=== PATIENT | female | born 1980 | race Caucasian/White ===

== ENCOUNTER 2019-01-22 03:15 | Inpatient (IN) | payer MEDICAID ==
[2019-01-22] MEDS ORDERED: MORPHINE SULFATE 10 MG/ML INJ IV ONE ×2 (03:30→06:56)
[2019-01-22] MEDS ORDERED: ONDANSETRON HCL INJ/PF 4 MG/2 ML SDV IV ONE ×2 (03:31→06:56)
--- NOTE | 2019-01-22 03:34 | ER Document Report ---
ED General <BEAU FREEMANIAN - Last Filed: 01/22/19 08:38> - General TRAVEL OUTSIDE OF THE [place] IN LAST 30 DAYS: No <NICK SOLORIO - Last Filed: 01/22/19 09:08> - General Chief Complaint: Back Injury Stated Complaint: FALL Time Seen by Provider: 01/22/19 03:25 Notes: Patient is a 38-year-old female that comes to the emergency department for chief complaint of injury to the right ribs towards the back. She comes by EMS was given 100 mcg of fentanyl. She states that she slipped on a flip-flop on the floor and hit her back on a corner of a cabinet. She states that she dropped to the floor and she has sharp pain in the ribs where she hit it. She denies hitting her head. She states she had 7 beers throughout the day. She denies chest pain, abdominal pain, difficulty breathing, vomiting, focal numbness or weakness, incontinence. She denies any daily medications, denies . Significant other at bedside. (NICK SOLORIO) - Related Data Allergies/Adverse Reactions: No Known Allergies Allergy (Unverified 11/16/11 08:03) Past Medical History - General Information source: Patient - Social History Smoking Status: Current Every Day Smoker Frequency of alcohol use: Social Drug Abuse: None Lives with: Spouse/Significant other Family History: Reviewed & Not Pertinent Past Surgical History: Reports: Hx Section - x 1 - Immunizations Immunizations up to date: Yes Hx Diphtheria, Pertussis, Tetanus Vaccination: Yes <NICK SOLORIO - Last Filed: 01/22/19 09:08> Review of Systems - Review of Systems Constitutional: No symptoms reported EENT: No symptoms reported Cardiovascular: No symptoms reported Respiratory: See HPI Gastrointestinal: No symptoms reported Genitourinary: No symptoms reported Female Genitourinary: No symptoms reported Musculoskeletal: See HPI Skin: No symptoms reported Hematologic/Lymphatic: No symptoms reported Neurological/Psychological: No symptoms reported <NICK SOLORIO - Last Filed: 01/22/19 09:08> Physical Exam <NICK SOLORIO - Last Filed: 01/22/19 09:08> - Vital signs Vitals: Temp Pulse Resp BP 97.6 F 102 H 24 H 106/59 L 01/22/19 03:23 01/22/19 03:23 01/22/19 03:23 01/22/19 03:23 - Notes Notes: GENERAL: awake, uncomfortable, irritable, but alert and cooperative; smells of alcohol HEAD: Normocephalic, atraumatic. EYES: Pupils equal, round, and reactive to light. Extraocular movements intact. ENT: Oral mucosa moist, tongue midline. Oropharynx unremarkable. Airway patent. Nares patent, no nasal septal hematoma, TM's intact. NECK: Full range of motion. Supple. Trachea midline. LUNGS: Clear to auscultation bilaterally, no wheezes, rales, or rhonchi. No respiratory distress. Very tender with a bruise over the right posterior ribs. No crepitus. HEART: Regular rate and rhythm. No murmur ABDOMEN: Soft, non-tender. Non-distended. Bowel sounds present in all 4 quadrants. GENITOURINARY: Deferred EXTREMITIES: Moves all 4 extremities spontaneously. No edema, normal radial and dorsalis pedis pulses bilaterally. No cyanosis. BACK: no cervical, thoracic, lumbar midline tenderness. No saddle anesthesia, normal distal neurovascular exam. Moves all extremities in full range of motion. NEUROLOGICAL: Alert and oriented x3. Normal speech. Cranial nerves II through XII grossly intact. SKIN: Warm, dry, normal turgor. No rashes or lesions noted. (NICK SOLORIO) Course - Laboratory Result Diagrams: 01/22/19 05:30 01/22/19 05:30 <KISHAN FREEMAN - Last Filed: 01/22/19 08:38> - Laboratory Result Diagrams: 01/22/19 05:30 01/22/19 05:30 <NICK SOLORIO - Last Filed: 01/22/19 09:08> - Re-evaluation Re-evalutation: 01/22/19 08:39 Patient was initially seen by Nick Solorio, physician congressional assistant. He has been come see the patient because she has a traumatic pneumothorax with rib fractures. I did review the x-rays and evaluate the patient. I talked her about the risks and benefits of both procedural sedation and chest tube placement. She agreed to go forward with the. Chest tube was placed patient tolerated both sedation and chest tube placement well. She was sedated with ketamine. CT scans did not show any further concerning injuries except for possible effusion. Patient will be admitted to surgical service for management of rib fractures with pneumothorax. Dictation of this chart was performed using voice recognition software; therefore, there may be some unintended grammatical errors. (KISHAN FREEMAN) Patient does have a bruise on her back and a lot of tenderness over the poste rior ribs on the right side. No other bruising or trauma noted. No head trauma reported or noted. Patient seems mildly intoxicated but she is conversational, oriented, otherwise alert. She is not hypoxic, she is borderline tachycardic. Sending for initial x-ray. X-ray showing moderate sized right-sided pneumothorax, multiple right-sided lower rib fractures. Patient still not hypoxic. I discussed this with patient, she verbally consents for chest tube placement emergently. Patient was im mediately moved to trauma 2 bay, I discussed with Dr. Freeman, he came and placed a right-sided chest tube. CAT scan showing coronary contusion but no other acute traumatic abnormality. Discussed with patient. I did discuss with Dr. Whittington, general surgeon, he will admit patient to his service. Patient does state agreement with this plan. (NICK SOLORIO) - Vital Signs Vital signs: Temp Pulse Resp BP Pulse Ox 97.6 F 102 H 20 111/70 97 01/22/19 03:23 01/22/19 06:45 01/22/19 08:00 01/22/19 08:00 01/22/19 08:00 - Laboratory Laboratory results interpreted by me: 01/22/19 01/22/19 01/22/19 05:30 05:30 07:57 WBC 15.8 H Hgb 8.0 L Hct 26.8 L MCV 64 L MCH 19.1 L MCHC 30.0 L RDW 18.4 H Seg Neuts % (Manual) 96 H Lymphocytes % (Manual) 3 L Monocytes % (Manual) 1 L Abs Neuts (Manual) 15.2 H Creatinine 0.49 L Urine Ketones 25 H Procedures - Chest Tube Right Consent obtained: Yes - verbal Chest tube pre-insertion: Chloraprep applied Size of [place] Tube (cm): 24 Anesthetic type: 1% Lidocaine w/epi mL's of anesthetic: 4 Chest tube post-insertion: Air da silva heard, Sutured, Position confirmed w/ CXR, Water seal, Low intermittent suction Chest tube drainage: none Number of attempts: 1 Complications: No - Conscious Sedation Conscious sedation Consent obtained: Yes - verbal Prior complications: Procedural sedation Normal healthy pt.: P1. - ASA Classification Airway Evaluation: Normal anatomy Mallampati Classification: Class 1 Used during procedure: Suction available, IV access obtained, Pulse ox on pt., manager monitoring on pt. Medications administered: Ketamine Reversal agents: None I personally performed/intraservice time: Sedation, 31-45 min Complications: No <KISHAN FREEMAN - Last Filed: 01/22/19 08:38> - Conscious Sedation Conscious sedation Notes: Patient given a total of 200 mg of ketamine over the course of her entire sedation. She tolerated sedation well without any complications. She is fully awake and alert with full recovery from sedation. (KISHAN FREEMAN) Discharge <KISHAN FREEMAN - Last Filed: 01/22/19 08:38> - Discharge Admitting Provider: Surgicalist Unit Admitted: Surgical Floor <NICK SOLORIO - Last Filed: 01/22/19 09:08> - Discharge Clinical Impression: Ribs, multiple fractures Qualifiers: Encounter type: initial encounter Fracture type: closed Laterality: right Qualified Code(s): S22.41XA - Multiple fractures of ribs, right side, initial encounter for closed fracture Pneumothorax Qualifiers: Pneumothorax type: traumatic Encounter type: initial encounter Qualified Code(s): S27.0XXA - Traumatic pneumothorax, initial encounter Pulmonary contusion Qualifiers: Encounter type: initial encounter Laterality: right Qualified Code(s): S27.321A - Contusion of lung, unilateral, initial encounter Condition: Stable Disposition: ADMITTED INPATIENT
--- NOTE | 2019-01-22 05:07 | RADIOLOGY REPORT (SQ) ---
EXAM DESCRIPTION: XR RIBS UNILATERAL WITH CHEST COMPLETED DATE/TME: 01/22/2019 03:29 CLINICAL HISTORY: 38 years Female, fall, pain to right posterior ribs COMPARISON: None. NUMBER OF VIEWS/TECHNIQUE: 2 FINDINGS: Moderate right pneumothorax with pleural separation of 2.0 cm. Mildly displaced right posterior eighth, ninth, and 10th rib fractures. Soft tissue emphysema of the thoracic wall and neck. Moderate leftward cardiac shift. Pulmonary vascular congestion. IMPRESSION: Moderate right pneumothorax. Right eighth, ninth, and 10th rib fractures.
[2019-01-22] MEDS ORDERED: KETAMINE HCL INJ 500 MG/10 ML VIAL IV ONE ×2 (05:29→07:40)
[2019-01-22] MEDS ORDERED: NORMAL SALINE 1000 ML 1,000 ML IV ONE (05:31)
[2019-01-22 05:52] LABS: HEMATOCRIT 26.8 % (36.0-47.0); MEAN CORPUSCULAR HEMOGLOBIN 19.1 pg (27.0-33.4); PLATELET COUNT 339 10^3/uL (150-450); RED CELL DISTRIBUTION WIDTH 18.4 % (11.5-14.0); WHITE BLOOD COUNT 15.8 10^3/uL (4.0-10.5)
[2019-01-22 05:56] LABS: MEAN CORPUSCULAR VOLUME 64 fl (80-97)
[2019-01-22 06:07] LABS: ALANINE AMINOTRANSFERASE 27 U/L (9-52); ALBUMIN 4.6 g/dL (3.5-5.0); ALCOHOL 50 mg/dL (NONE DETECTED); ALKALINE PHOSPHATASE 61 U/L (38-126); ANION GAP 8 (5-19); ASPARTATE AMINO TRANSFERASE 33 U/L (14-36); BILIRUBIN,DIRECT 0.2 mg/dL (0.0-0.4); BILIRUBIN,TOTAL 0.3 mg/dL (0.2-1.3); BLOOD UREA NITROGEN 10 mg/dL (7-20); CARBON DIOXIDE 24 mmol/L (22-30); CHLORIDE 107 mmol/L (98-107); GLUCOSE 97 mg/dL (75-110); POTASSIUM 4.4 mmol/L (3.6-5.0); TOTAL PROTEIN 7.9 g/dL (6.3-8.2)
[2019-01-22] MEDS ORDERED: LIDOCAINE 1%/EPINEPHRINE INJ 20 ML VIAL INJ ONE (06:08)
[2019-01-22] MEDS ORDERED: LIDOCAINE 1%/EPINEPHRINE INJ 20 ML VIAL ONE (06:09)
[2019-01-22 06:13] LABS: ABSOLUTE LYMPHOCYTES# (MANUAL) 0.5 10^3/uL (0.5-4.7); ABSOLUTE MONOCYTES # (MANUAL) 0.2 10^3/uL (0.1-1.4); BASOPHILS % (MANUAL) 0 % (0-2); EOSINOPHILS % (MANUAL) 0 % (0-6); HYPOCHROMASIA 2+; LYMPHOCYTES % (MANUAL) 3 % (13-45); MONOCYTES % (MANUAL) 1 % (3-13); PLATELET COMMENT ADEQUATE; SEGMENTED NEUTROPHILS % (MAN) 96 % (42-78); TOTAL CELLS COUNTED 100
[2019-01-22 06:14] LABS: ANISOCYTOSIS 2+; OVALOCYTES SLIGHT; POLYCHROMASIA SLIGHT
--- NOTE | 2019-01-22 07:02 | RADIOLOGY REPORT (SQ) ---
EXAM DESCRIPTION: XR CHEST 1 VIEW COMPLETED DATE/TME: 01/22/2019 06:23 CLINICAL HISTORY: 38 years, Female, post chest tube COMPARISON: Rib x-rays done on the same date NUMBER OF VIEWS: One TECHNIQUE: AP view the chest LIMITATIONS: None. FINDINGS: The previous examination, a right-sided chest tube has been placed with resolution of the previously seen pneumothorax. There is no focal consolidation. The heart size is stable. There is subcutaneous emphysema along the supraclavicular regions and bilateral chest, right greater than left. Right-sided rib fractures are again noted. IMPRESSION: Placement of a right-sided chest tube with no definite residual pneumothorax identified. copyright 2010 [employer]- All Rights Reserved
--- NOTE | 2019-01-22 08:06 | RADIOLOGY REPORT (SQ) ---
EXAM DESCRIPTION: CT CHEST WITH IV CONTRAST, CT ABDOMEN PELVIS WITH IV CONTRAST COMPLETED DATE/TME: 01/22/2019 05:19 CLINICAL HISTORY: 38 years, Female, fall, rib fx, pneumo COMPARISON: None. TECHNIQUE: Axial CT images of the chest, abdomen, and pelvis were obtained after the administration of IV contrast. DLP 652 Images stored on PACS. All CT scanners at this facility use dose modulation, iterative reconstruction, and/or weight based dosing when appropriate to reduce radiation dose to as low as reasonably achievable (ALARA). [facility]: Dose Right [facility]: CareDose [facility]: Dose Right [facility]: Teradose 4D [facility]: [employer] LIMITATIONS: None. FINDINGS: --Chest-- Thoracic aorta: Unremarkable. Heart: Unremarkable. Mediastinum: No pathologic sized middle mediastinal lymphadenopathy. Tracheobronchial tree: Unremarkable. Lungs: Lobar consolidation: There are two areas of pulmonary contusion/laceration within the right lower lobe. Pleural effusion: Tiny right hemothorax. Pneumothorax: Tiny residual pneumothorax with a right-sided chest tube in place. Other: Negative. Bones: There are displaced fractures involving the right eighth through 11th ribs. There is extensive subcutaneous emphysema along the chest, back, and neck, right greater than left. --Abdomen-- Solid abdominal viscera: Liver: Unremarkable. Gallbladder: Unremarkable. Pancreas: Unremarkable. Spleen: Unremarkable. Adrenal glands: Unremarkable. Right kidney: No hydronephrosis. Left kidney: No hydronephrosis. Urinary bladder: Vides catheter in place Abdominal aorta: Unremarkable. Peritoneal: Free fluid: None. Free air: None. Other: No pathologic sized lymph nodes in the upper abdomen. Bowel: Stomach: Unremarkable. Small bowel: Unremarkable. Appendix: Not uniquely identified. Colon: Unremarkable. Rectum: Unremarkable. Uterus: Unremarkable. Bones: Unremarkable. IMPRESSION: Displaced right-sided rib fractures with two areas of pulmonary contusion/laceration involving the right lower lobe. Tiny residual pneumothorax with a right-sided chest tube in place. Extensive subcutaneous emphysema along the neck, chest, and back, right greater than left. Tiny right hemothorax. No evidence of acute traumatic injury to the abdomen or pelvis. TECHNICAL DOCUMENTATION: Quality ID # [id number]: Final reports with documentation of one or more dose reduction techniques (e.g., Automated exposure control, adjustment of the mA and/or kV according to patient size, use of iterative reconstruction technique) copyright 2011 [employer]- All Rights Reserved
[2019-01-22 08:17] LABS: APPEARANCE,URINE CLEAR; COLOR,URINE STRAW; GLUCOSE, URINE NEGATIVE (NEGATIVE)
[2019-01-22] MEDS ORDERED: OXYCODONE-ACETAMINOPHEN 5-325 MG TABLET PO PRN (08:17)
[2019-01-22 08:18] LABS: BILIRUBIN,URINE NEGATIVE (NEGATIVE); KETONES,URINE 25 mg/dL (NEGATIVE); LEUKOCYTE ESTERASE,URINE NEGATIVE (NEGATIVE); NITRITE,URINE NEGATIVE (NEGATIVE); PROTEIN,URINE NEGATIVE (NEGATIVE); URINE SPECIFIC GRAVITY 1.039; UROBILINOGEN,URINE NEGATIVE mg/dL (<2.0)
[2019-01-22] MEDS: MORPHINE SULFATE 10 MG/ML INJ IV PRN ×4 (09:01→21:43)
[2019-01-22] MEDS: ONDANSETRON HCL INJ/PF 4 MG/2 ML SDV IV PRN ×4 (09:02→22:56)
[2019-01-22] MEDS: FAMOTIDINE 20 MG TABLET PO SCH ×2 (10:32→21:43)
[2019-01-22] MEDS: ENOXAPARIN SODIUM INJ 40 MG/0.4 ML DISP.SYRIN SUBCUT SCH (10:33)
[2019-01-22] MEDS: DOCUSATE SODIUM 100 MG CAPSULE PO SCH ×2 (10:33→17:08)
[2019-01-22] MEDS: KETOROLAC TROMETHAMINE INJ/PF 30 MG/1 ML SDV IV SCH ×2 (14:14→21:42)
--- NOTE | 2019-01-22 17:32 | PDOC H&P ---
History of Present Illness Admission Date/PCP: 01/22/19 08:15 Patient complains of: Right-sided back and chest pain status post fall. Pulmonary contusion. Multiple rib fractures. Pneumothorax. History of Present Illness: ROMULO LUNA is a 38 year old female who reportedly was intoxicated at home, slipped, and fell into her large wooden table. The corner of the table hit her right inferior lateral back. She reports that she immediately had difficulty breathing and EMS was called. The patient was transported to the emergency department where a pneumothorax was found. The patient had a thoracostomy tube placed in the emergency department on the right side. Currently she reports significant amounts of chest pain, especially with inspiration. Her pain is sharp and stabbing. It is 10 out of 10. It radiates into her right shoulder now around her right anterior chest. Pain medication makes her pain better, movement and deep inspiration make it worse. She denies significant shortness of breath at this time. She denies headache, nausea, vomiting, fevers, chills, malaise, orthostasis, dizziness, melena, hematochezia, abdominal pain, weakness, paresthesias. Past Surgical History Past Surgical History: Reports: Section - x 1 Social History Lives with: Spouse/Significant other Smoking Status: Current Every Day Smoker Cigarettes Packs Per Day: 1 Frequency of Alcohol Use: Occasional Hx Recreational Drug Use: Yes Drugs: Marijuana, Other - Adderall Hx Prescription Drug Abuse: No Family History Family History: Reviewed & Not Pertinent Parental Family History Reviewed: Yes Children Family History Reviewed: Yes Sibling(s) Family History Reviewed.: Yes Medication/Allergy Home Medications: No Home Medications 01/22/19 Allergies/Adverse Reactions: No Known Allergies Allergy (Unverified 11/16/11 08:03) Review of Systems Constitutional: ABSENT: anorexia, chills, fatigue, fever(s), weakness Eyes: ABSENT: visual disturbances Ears: ABSENT: hearing changes Nose, Mouth, and Throat: ABSENT: mouth pain, sore throat Cardiovascular: PRESENT: chest pain, dyspnea on exertion Respiratory: PRESENT: dyspnea Gastrointestinal: ABSENT: abdominal pain, hematemesis, hematochezia, melena, nausea, vomiting Genitourinary: ABSENT: dysuria Musculoskeletal: PRESENT: back pain Integumentary: ABSENT: pruritus, rash Neurological: ABSENT: confusion, convulsions, dizziness, weakness Psychiatric: ABSENT: anxiety, depression Endocrine: ABSENT: cold intolerance, heat intolerance Hematologic/Lymphatic: ABSENT: easy bleeding, easy bruising Physical Exam Vital Signs: Temp Pulse Resp BP Pulse Ox 98 F 67 16 112/60 94 01/22/19 14:32 01/22/19 14:32 01/22/19 14:32 01/22/19 14:32 01/22/19 14:32 Intake & Output 01/21/19 01/22/19 01/23/19 06:59 06:59 06:59 Intake Total 1000 Balance 1000 Weight 59.6 kg General appearance: PRESENT: no acute distress, cooperative Head exam: PRESENT: atraumatic, normocephalic Eye exam: PRESENT: EOMI, PERRLA. ABSENT: scleral icterus Mouth exam: PRESENT: moist, neck supple Teeth exam: ABSENT: poor dentation Neck exam: ABSENT: meningismus, tenderness, thyromegaly, tracheal deviation Respiratory exam: PRESENT: chest wall tenderness, decreased breath sounds - Right side, other - Tube thoracostomy present on the right side Cardiovascular exam: PRESENT: RRR Pulses: PRESENT: normal radial pulses Vascular exam: PRESENT: normal capillary refill GI/Abdominal exam: PRESENT: soft. ABSENT: distended, guarding, rebound, tenderness Rectal exam: PRESENT: deferred Extremities exam: ABSENT: clubbing Musculoskeletal exam: ABSENT: deformity Neurological exam: PRESENT: alert, awake, oriented to person, oriented to place, oriented to time, oriented to situation, CN II-XII grossly intact. ABSENT: motor sensory deficit Psychiatric exam: ABSENT: agitated, anxious, depressed Focused psych exam: ABSENT: delusional Skin exam: ABSENT: cyanosis, erythema, jaundice Results Laboratory Results: 01/22/19 05:30 01/22/19 05:30 01/22/19 01/22/19 01/22/19 05:30 05:30 05:30 WBC 15.8 H RBC 4.20 Hgb 8.0 L Hct 26.8 L MCV 64 L MCH 19.1 L MCHC 30.0 L RDW 18.4 H Plt Count 339 Seg Neutrophils % Not Reportable Lymphocytes % Not Reportable Monocytes % Not Reportable Eosinophils % Not Reportable Basophils % Not Reportable Absolute Neutrophils Not Reportable Absolute Lymphocytes Not Reportable Absolute Monocytes Not Reportable Absolute Eosinophils Not Reportable Absolute Basophils Not Reportable Sodium 139.0 Potassium 4.4 Chloride 107 Carbon Dioxide 24 Anion Gap 8 BUN 10 Creatinine 0.49 L Est GFR ( Amer) > 60 Est GFR (Non-Af Amer) > 60 Glucose 97 Calcium 9.0 Total Bilirubin 0.3 AST 33 ALT 27 Alkaline Phosphatase 61 Total Protein 7.9 Albumin 4.6 Serum HCG, Qual NEGATIVE Urine Color Urine Appearance Urine pH Ur Specific [place] Urine Protein Urine Glucose (UA) Urine Ketones Urine Blood Urine Nitrite Ur Leukocyte Esterase Urine WBC (Auto) Urine RBC (Auto) 01/22/19 07:57 WBC RBC Hgb Hct MCV MCH MCHC RDW Plt Count Seg Neutrophils % Lymphocytes % Monocytes % Eosinophils % Basophils % Absolute Neutrophils Absolute Lymphocytes Absolute Monocytes Absolute Eosinophils Absolute Basophils Sodium Potassium Chloride Carbon Dioxide Anion Gap BUN Creatinine Est GFR ( Amer) Est GFR (Non-Af Amer) Glucose Calcium Total Bilirubin AST ALT Alkaline Phosphatase Total Protein Albumin Serum HCG, Qual Urine Color STRAW Urine Appearance CLEAR Urine pH 6.0 Ur Specific [place] 1.039 Urine Protein NEGATIVE Urine Glucose (UA) NEGATIVE Urine Ketones 25 H Urine Blood NEGATIVE Urine Nitrite NEGATIVE Ur Leukocyte Esterase NEGATIVE Urine WBC (Auto) 1 Urine RBC (Auto) 1 Impressions: Ribs w/Chest X-Ray 01/22/19 03:29 IMPRESSION: Moderate right pneumothorax. Right eighth, ninth, and 10th rib fractures. Abdomen/Pelvis CT 01/22/19 05:19 IMPRESSION: Displaced right-sided rib fractures with two areas of pulmonary contusion/laceration involving the right lower lobe. Tiny residual pneumothorax with a right-sided chest tube in place. Extensive subcutaneous emphysema along the neck, chest, and back, right greater than left. Tiny right hemothorax. No evidence of acute traumatic injury to the abdomen or pelvis. TECHNICAL DOCUMENTATION: Quality ID # 436: Final reports with documentation of one or more dose reduction techniques (e.g., Automated exposure control, adjustment of the mA and/or kV according to patient size, use of iterative reconstruction technique) copyright 2011 [employer]- All Rights Reserved Chest CT 01/22/19 05:19 IMPRESSION: Displaced right-sided rib fractures with two areas of pulmonary contusion/laceration involving the right lower lobe. Tiny residual pneumothorax with a right-sided chest tube in place. Extensive subcutaneous emphysema along the neck, chest, and back, right greater than left. Tiny right hemothorax. No evidence of acute traumatic injury to the abdomen or pelvis. TECHNICAL DOCUMENTATION: Quality ID # 436: Final reports with documentation of one or more dose reduction techniques (e.g., Automated exposure control, adjustment of the mA and/or kV according to patient size, use of iterative reconstruction technique) copyright 2011 [employer]- All Rights Reserved Chest X-Ray 01/22/19 06:23 IMPRESSION: Placement of a right-sided chest tube with no definite residual pneumothorax identified. copyright 2011 [employer]- All Rights Reserved Assessment & Plan - Diagnosis (1) Multiple fractures of ribs, right side, initial encounter for closed fracture Is this a current diagnosis for this admission?: Yes (2) Right pulmonary contusion Qualifiers: Encounter type: initial encounter Qualified Code(s): S27.321A - Contusion of lung, unilateral, initial encounter Is this a current diagnosis for this admission?: Yes (3) Pneumothorax, right Is this a current diagnosis for this admission?: Yes - Plan Summary Plan Summary: This is a patient status post fall. She landed on a large wooden table, with the corner of the table hitting her right lower back. I have personally reviewed her CT scan images and report. She has multiple fractured ribs, pulmonary contusion, and a pneumothorax. She also has a large amount of subcutaneous emphysema on the right. Patient had a chest tube placed in the emergency department. There is no air leak apparent upon my inspection. I will place the patient's chest tubes 20 cm of water suction. I have provided the patient with analgesia in the form of Toradol, morphine, and hydrocodone. I have encouraged her to use her incentive spirometry, as this will prevent pneumonia. I have encouraged her to sit up, and get out of bed to a bedside chair. Repeat chest x-ray tomorrow. Further interventions will be determined by the patient's clinical course.
[2019-01-22] MEDS: HYDROCODONE/ACETAMINOPHEN 10-325 MG TABLET PO PRN ×2 (18:35→22:56)
[2019-01-23] MEDS: MORPHINE SULFATE 10 MG/ML INJ IV PRN ×4 (02:13→16:46)
[2019-01-23] MEDS: HYDROCODONE/ACETAMINOPHEN 10-325 MG TABLET PO PRN ×4 (03:05→23:14)
[2019-01-23] MEDS: ONDANSETRON HCL INJ/PF 4 MG/2 ML SDV IV PRN ×3 (03:07→18:21)
[2019-01-23] MEDS: KETOROLAC TROMETHAMINE INJ/PF 30 MG/1 ML SDV IV SCH ×3 (06:43→21:09)
--- NOTE | 2019-01-23 08:27 | RADIOLOGY REPORT (SQ) ---
EXAM DESCRIPTION: CHEST SINGLE VIEW COMPLETED DATE/TIME: 01/23/2019 8:02 am REASON FOR STUDY: pneumothorax COMPARISON: CT chest 01/22/2019 AP chest 01/22/2019 EXAM PARAMETERS: NUMBER OF VIEWS: One view. TECHNIQUE: Single frontal radiographic view of the chest acquired. RADIATION DOSE: NA LIMITATIONS: None. FINDINGS: LUNGS AND PLEURA: The right chest tube has been pulled back, the side port is lateral to t he right rib margin. This finding was called to Dr. Lopez, 0815 hours 01/23/2019. No right-sided pneumothorax. Stable right lateral chest wall, minimal left lateral chest wall, and bilateral supraclavicular air. Posttraumatic pneumatocele in the right lower lobe is superimposed over the right posterior 9th and 1 0th ribs, stable compared to prior CT. No right pleural effusion. No dense right lung consolidation worrisome for acute pneumonia. Left hemithorax unremarkable. MEDIASTINUM AND HILAR STRUCTURES: No masses. Contour normal. HEART AND VASCULAR STRUCTURES: Heart normal in size. Normal vasculature. BONES: Acute minimally displaced right lateral 8th and 9th rib fractures HARDWARE: Right chest tube has been pulled back, tip is still in the pleural space and side-port is l ateral to the right 7th rib OTHER: No other significant finding. IMPRESSION: Right lateral 8th and 9th rib fractures Stable right lower lung pneumatoceles. Right chest tube has been pulled back, side port is lateral to the rib margin. Stable chest wall air . No pneumothorax. TECHNICAL DOCUMENTATION: JOB ID: [id number] [employer]- All Rights Reserved Reading location - IP/workstation name: [email or web address]
--- NOTE | 2019-01-23 09:41 | PDOC PROGRESS REPORT ---
Subjective Progress Note for:: 01/23/19 Subjective:: Patient have a significant amount of pain. Vides catheter still in. She is tolerating a diet. Has not been out of bed. Reason For Visit: S/P FALL,RIB FX,PULMONARY CONTUSION Physical Exam Vital Signs: Temp Pulse Resp BP Pulse Ox 97.8 F 67 16 100/52 L 94 01/22/19 22:00 01/22/19 22:00 01/22/19 22:00 01/22/19 22:00 01/22/19 22:00 Intake & Output 01/22/19 01/23/19 01/24/19 06:59 06:59 06:59 Intake Total 1240 Output Total 1425 Balance -185 Weight 59.6 kg General appearance: PRESENT: mild distress Respiratory exam: PRESENT: other - Dressing from right chest removed. Chest tube re-advanced 1-2 cm. Chest tube resecured. There is no evidence of air leak. Chest tube chamber shows no evidence of air leak, minimal fluctuation. Some serosanguineous fluid in tube Results Laboratory Results: 01/22/19 05:30 01/22/19 05:30 Impressions: Ribs w/Chest X-Ray 01/22/19 03:29 IMPRESSION: Moderate right pneumothorax. Right eighth, ninth, and 10th rib fractures. Abdomen/Pelvis CT 01/22/19 05:19 IMPRESSION: Displaced right-sided rib fractures with two areas of pulmonary contusion/laceration involving the right lower lobe. Tiny residual pneumothorax with a right-sided chest tube in place. Extensive subcutaneous emphysema along the neck, chest, and back, right greater than left. Tiny right hemothorax. No evidence of acute traumatic injury to the abdomen or pelvis. TECHNICAL DOCUMENTATION: Quality ID # 436: Final reports with documentation of one or more dose reduction techniques (e.g., Automated exposure control, adjustment of the mA and/or kV according to patient size, use of iterative reconstruction technique) copyright 2011 [employer]- All Rights Reserved Chest CT 01/22/19 05:19 IMPRESSION: Displaced right-sided rib fractures with two areas of pulmonary contusion/laceration involving the right lower lobe. Tiny residual pneumothorax with a right-sided chest tube in place. Extensive subcutaneous emphysema along the neck, chest, and back, right greater than left. Tiny right hemothorax. No evidence of acute traumatic injury to the abdomen or pelvis. TECHNICAL DOCUMENTATION: Quality ID # [id number]: Final reports with documentation of one or more dose reduction techniques (e.g., Automated exposure control, adjustment of the mA and/or kV according to patient size, use of iterative reconstruction technique) copyright 2011 [employer]- All Rights Reserved Chest X-Ray 01/23/19 06:00 IMPRESSION: Right lateral 8th and 9th rib fractures Stable right lower lung pneumatoceles. Right chest tube has been pulled back, side port is lateral to the rib margin. Stable chest wall air. No pneumothorax. Assessment & Plan - Diagnosis (1) Multiple fractures of ribs, right side, initial encounter for closed fr acture Is this a current diagnosis for this admission?: Yes Plan: Impression: Hospital day 2 status post fall, blunt right chest trauma, with mult iple rib fractures, pneumothorax, pulmonary contusion status post chest tube placement. Interval chest x-ray this morning shows no evidence of pneumothorax, stable, limited subcutaneous emphysema. Chest tube sentinel hole at chest wall- tube readvanced at bedside Medications: 1. Place chest tube to waterseal-done 2. Discontinue Vides catheter 3. Increased pulmonary toilet 4. Hopefully can remove chest tube tomorrow. Plan discussed with patient.
[2019-01-23] MEDS: DOCUSATE SODIUM 100 MG CAPSULE PO SCH ×2 (10:49→18:22)
[2019-01-23] MEDS: FAMOTIDINE 20 MG TABLET PO SCH ×2 (10:50→21:12)
[2019-01-23] MEDS: ENOXAPARIN SODIUM INJ 40 MG/0.4 ML DISP.SYRIN SUBCUT SCH (10:50)
[2019-01-23 14:38] LABS: PATH REVIEW PATHOLOGIST REVIEWED
[2019-01-24] MEDS: MORPHINE SULFATE 10 MG/ML INJ IV PRN ×4 (01:45→22:45)
[2019-01-24] MEDS: KETOROLAC TROMETHAMINE INJ/PF 30 MG/1 ML SDV IV SCH ×3 (05:43→22:18)
[2019-01-24] MEDS: HYDROCODONE/ACETAMINOPHEN 10-325 MG TABLET PO PRN ×4 (07:04→20:01)
--- NOTE | 2019-01-24 10:36 | PDOC PROGRESS REPORT ---
Subjective Progress Note for:: 01/24/19 Subjective:: Discomfort at chest tube insertion site. Otherwise feels well. No shortness of breath. No neck pain. No abdominal pain. Reason For Visit: S/P FALL,RIB FX,PULMONARY CONTUSION Physical Exam Vital Signs: Temp Pulse Resp BP Pulse Ox 97.6 F 63 16 98/51 L 98 01/24/19 07:26 01/24/19 07:26 01/24/19 07:26 01/24/19 07:26 01/24/19 07:26 Intake & Output 01/23/19 01/24/19 01/25/19 06:59 06:59 06:59 Intake Total 1240 997 Output Total 1425 770 Balance -185 227 Weight 59.6 kg General appearance: PRESENT: no acute distress, cooperative Neck exam: PRESENT: other - Supple with no tenderness. Respiratory exam: PRESENT: clear to auscultation rick, other - Right-sided chest tube in place. Dressings intact. No air leak on the chest tube Pleur-evac. Cardiovascular exam: PRESENT: RRR GI/Abdominal exam: PRESENT: other - Soft, nondistended, nontender to palpation. Extremities exam: PRESENT: other - Full range of motion with no evidence of injury. Neurological exam: PRESENT: alert, awake Psychiatric exam: PRESENT: appropriate affect Results Laboratory Results: 01/22/19 05:30 01/22/19 05:30 Impressions: Ribs w/Chest X-Ray 01/22/19 03:29 IMPRESSION: Moderate right pneumothorax. Right eighth, ninth, and 10th rib fractures. Abdomen/Pelvis CT 01/22/19 05:19 IMPRESSION: Displaced right-sided rib fractures with two areas of pulmonary contusion/laceration involving the right lower lobe. Tiny residual pneumothorax with a right-sided chest tube in place. Extensive subcutaneous emphysema along the neck, chest, and back, right greater than left. Tiny right hemothorax. No evidence of acute traumatic injury to the abdomen or pelvis. TECHNICAL DOCUMENTATION: Quality ID # 436: Final reports with documentation of one or more dose reduction techniques (e.g., Automated exposure control, adjustment of the mA and/or kV according to patient size, use of iterative reconstruction technique) copyright 2011 [employer]- All Rights Reserved Chest CT 01/22/19 05:19 IMPRESSION: Displaced right-sided rib fractures with two areas of pulmonary contusion/laceration involving the right lower lobe. Tiny residual pneumothorax with a right-sided chest tube in place. Extensive subcutaneous emphysema along the neck, chest, and back, right greater than left. Tiny right hemothorax. No evidence of acute traumatic injury to the abdomen or pelvis. TECHNICAL DOCUMENTATION: Quality ID # 436: Final reports with documentation of one or more dose reduction techniques (e.g., Automated exposure control, adjustment of the mA and/or kV according to patient size, use of iterative reconstruction technique) copyright 2011 [employer]- All Rights Reserved Chest X-Ray 01/23/19 06:00 IMPRESSION: Right lateral 8th and 9th rib fractures Stable right lower lung pneumatoceles. Right chest tube has been pulled back, side port is lateral to the rib margin. Stable chest wall air. No pneumothorax. Assessment & Plan - Diagnosis (1) Pneumothorax, right Is this a current diagnosis for this admission?: Yes Plan: Patient looks pretty good. Check chest x-ray. If chest x-ray looks good we will plan to DC her chest tube and possibly discharge her home later today.
[2019-01-24] MEDS: FAMOTIDINE 20 MG TABLET PO SCH ×3 (10:59→22:27)
[2019-01-24] MEDS: ENOXAPARIN SODIUM INJ 40 MG/0.4 ML DISP.SYRIN SUBCUT SCH (10:59)
[2019-01-24] MEDS: DOCUSATE SODIUM 100 MG CAPSULE PO SCH ×2 (10:59→17:22)
--- NOTE | 2019-01-24 12:30 | RADIOLOGY REPORT (SQ) ---
EXAM DESCRIPTION: CHEST SINGLE VIEW COMPLETED DATE/TIME: 01/24/2019 10:53 am REASON FOR STUDY: f/u ptx COMPARISON: AP chest 01/23/2019, 740 hours EXAM PARAMETERS: NUMBER OF VIEWS: One view. TECHNIQUE: Single frontal radiographic view of the chest acquired. RADIATION DOSE: NA LIMITATIONS: None. FINDINGS: LUNGS AND PLEURA: A right-sided chest tube is in place, the tip is in the pleural space an d side-port is lateral to the rib margin. Position is similar compared to chest film 01/23/2019 0740 h ours. Images reviewed with Dr. Hayward. There is trace right apical pneumothorax marked with arrows. Small posttraumatic pneumatoceles with air-fluid levels are present in the right lower lobe adjacent to the right lateral 8th and 9th rib fractures. There is micro atelectasis at the right lung base. Remainder of the lungs are well inflated and grossly clear. No pleural effusions. No left pneumothorax. MEDIASTINUM AND HILAR STRUCTURES: No masses. Contour normal. HEART AND VASCULAR STRUCTURES: Heart normal in size. Normal vasculature. BONES: Right lateral rib fractures unchanged HARDWARE: Right chest tube as above OTHER: No other significant finding. IMPRESSION: Right lateral chest tube tip is in the pleural space, side-port along the lateral rib ma rgin. Small apical pneumothorax. Decrease in chest wall air compared yesterday's films. Persistent right lower lobe pneumatoceles adjacent to right lower lateral rib fractures TECHNICAL DOCUMENTATION: JOB ID: [id number] [employer]- All Rights Reserved Reading location - IP/workstation name: [email or web address]
--- NOTE | 2019-01-24 12:37 | PDOC PROGRESS REPORT ---
Subjective Progress Note for:: 01/24/19 Subjective:: No complaints Reason For Visit: S/P FALL,RIB FX,PULMONARY CONTUSION Physical Exam Vital Signs: Temp Pulse Resp BP Pulse Ox 97.8 F 70 15 94/76 L 98 01/24/19 10:59 01/24/19 10:59 01/24/19 10:59 01/24/19 10:59 01/24/19 10:59 Intake & Output 01/23/19 01/24/19 01/25/19 06:59 06:59 06:59 Intake Total 1240 997 Output Total 1425 770 Balance -185 227 Weight 59.6 kg General appearance: PRESENT: no acute distress, cooperative Results Laboratory Results: 01/22/19 05:30 01/22/19 05:30 Impressions: Ribs w/Chest X-Ray 01/22/19 03:29 IMPRESSION: Moderate right pneumothorax. Right eighth, ninth, and 10th rib fractures. Abdomen/Pelvis CT 01/22/19 05:19 IMPRESSION: Displaced right-sided rib fractures with two areas of pulmonary contusion/laceration involving the right lower lobe. Tiny residual pneumothorax with a right-sided chest tube in place. Extensive subcutaneous emphysema along the neck, chest, and back, right greater than left. Tiny right hemothorax. No evidence of acute traumatic injury to the abdomen or pelvis. TECHNICAL DOCUMENTATION: Quality ID # 436: Final reports with documentation of one or more dose reduction techniques (e.g., Automated exposure control, adjustment of the mA and/or kV according to patient size, use of iterative reconstruction technique) copyright 2010 [employer]- All Rights Reserved Chest CT 01/22/19 05:19 IMPRESSION: Displaced right-sided rib fractures with two areas of pulmonary contusion/laceration involving the right lower lobe. Tiny residual pneumothorax with a right-sided chest tube in place. Extensive subcutaneous emphysema along the neck, chest, and back, right greater than left. Tiny right hemothorax. No evidence of acute traumatic injury to the abdomen or pelvis. TECHNICAL DOCUMENTATION: Quality ID # 436: Final reports with documentation of one or more dose reduction techniques (e.g., Automated exposure control, adjustment of the mA and/or kV according to patient size, use of iterative reconstruction technique) copyright 2010 [employer]- All Rights Reserved Chest X-Ray 01/24/19 10:35 IMPRESSION: Right lateral chest tube tip is in the pleural space, side-port along the lateral rib margin. Small apical pneumothorax. Decrease in chest wall air compared yesterday's films. Persistent right lower lobe pneumatoceles adjacent to right lower lateral rib fractures Assessment & Plan - Diagnosis (1) Pneumothorax, right Is this a current diagnosis for this admission?: Yes Plan: Chest x-ray revealed a small apical pneumothorax and a chest tube that is partially out of the thorax. There is subcutaneous emphysema. I do not think that the chest tube is functioning properly. Therefore the chest tube was removed without difficulty and the wound was sealed with Vaseline gauze. We will monitor the patient with repeat chest x-ray now and repeat chest x-ray later today and tomorrow. Hopefully she will have a decreased pneumothorax with sequential chest x-rays. If she has a significant increase in pneumothorax, will place a new chest tube. With the side ports being out of the thorax I do not think this current chest tube could have been saved without incurring infectious risks.
--- NOTE | 2019-01-24 13:56 | RADIOLOGY REPORT (SQ) ---
EXAM DESCRIPTION: CHEST SINGLE VIEW COMPLETED DATE/TIME: 01/24/2019 1:22 pm REASON FOR STUDY: Follow-up pneumothorax COMPARISON: Chest films 01/24/2019, 01/23/2019, 01/22/2019 EXAM PARAMETERS: NUMBER OF VIEWS: One view. TECHNIQUE: Single frontal radiographic view of the chest acquired. RADIATION DOSE: NA LIMITATIONS: None. FINDINGS: LUNGS AND PLEURA: Right chest tube has been removed. 20% pneumothorax. Findings discusse d with Dr. Hayward. Small right lower lung pneumatoceles are unchanged with surrounding airspace disease. Stable right chest wall and bilateral supraclavicular air. No left pneumothorax, pleural effusion or lung parenchymal findings. MEDIASTINUM AND HILAR STRUCTURES: No masses. Contour normal. HEART AND VASCULAR STRUCTURES: Heart normal in size. Normal vasculature. BONES: Right lateral rib fractures HARDWARE: None in the chest. OTHER: No other significant finding. IMPRESSION: 20% pneumothorax right side post right chest tube removal. Findings discussed with Dr. Hayward TECHNICAL DOCUMENTATION: JOB ID: [id number] [employer]- All Rights Reserved Reading location - IP/workstation name: [email or web address]
--- NOTE | 2019-01-24 16:32 | RADIOLOGY REPORT (SQ) ---
EXAM DESCRIPTION: CHEST SINGLE VIEW COMPLETED DATE/TIME: 01/24/2019 4:10 pm REASON FOR STUDY: Follow-up pneumothorax COMPARISON: 01/24/2019 1309 hours EXAM PARAMETERS: NUMBER OF VIEWS: One view. TECHNIQUE: Single frontal radiographic view of the chest acquired. RADIATION DOSE: NA LIMITATIONS: None. FINDINGS: LUNGS AND PLEURA: 2 hours post right chest tube removal. A 20% right pneumothorax is pres ent unchanged from chest films at 1309 hours today. Results discussed with Dr. Hayward. The small right lower lobe meta seals adjacent to right lower rib fractures are unchanged. No pleural effusion. Decreased right chest and supraclavicular air compared to previous exams. MEDIASTINUM AND HILAR STRUCTURES: No masses. Contour normal. HEART AND VASCULAR STRUCTURES: Heart normal in size. Normal vasculature. BONES: Right posterolateral rib fractures HARDWARE: None in the chest. OTHER: No other significant finding. IMPRESSION: Stable 20% pneumothorax 2 hours post right chest tube removal. TECHNICAL DOCUMENTATION: JOB ID: [id number] [employer]- All Rights Reserved Reading location - IP/workstation name: [email or web address]
--- NOTE | 2019-01-24 22:53 | PDOC PROGRESS REPORT ---
Subjective Reason For Visit: S/P FALL,RIB FX,PULMONARY CONTUSION Physical Exam Vital Signs: Temp Pulse Resp BP Pulse Ox 97.8 F 62 16 101/48 L 99 01/24/19 19:23 01/24/19 19:23 01/24/19 19:23 01/24/19 19:23 01/24/19 19:23 Intake & Output 01/23/19 01/24/19 01/25/19 06:59 06:59 06:59 Intake Total 1240 997 240 Output Total 1425 770 Balance -185 227 240 Weight 59.6 kg Results Laboratory Results: 01/22/19 05:30 01/22/19 05:30 Impressions: Ribs w/Chest X-Ray 01/22/19 03:29 IMPRESSION: Moderate right pneumothorax. Right eighth, ninth, and 10th rib fractures. Abdomen/Pelvis CT 01/22/19 05:19 IMPRESSION: Displaced right-sided rib fractures with two areas of pulmonary contusion/laceration involving the right lower lobe. Tiny residual pneumothorax with a right-sided chest tube in place. Extensive subcutaneous emphysema along the neck, chest, and back, right greater than left. Tiny right hemothorax. No evidence of acute traumatic injury to the abdomen or pelvis. TECHNICAL DOCUMENTATION: Quality ID # 436: Final reports with documentation of one or more dose reduction techniques (e.g., Automated exposure control, adjustment of the mA and/or kV according to patient size, use of iterative reconstruction technique) copyright 2010 [employer]- All Rights Reserved Chest CT 01/22/19 05:19 IMPRESSION: Displaced right-sided rib fractures with two areas of pulmonary contusion/laceration involving the right lower lobe. Tiny residual pneumothorax with a right-sided chest tube in place. Extensive subcutaneous emphysema along the neck, chest, and back, right greater than left. Tiny right hemothorax. No evidence of acute traumatic injury to the abdomen or pelvis. TECHNICAL DOCUMENTATION: Quality ID # 436: Final reports with documentation of one or more dose reduction techniques (e.g., Automated exposure control, adjustment of the mA and/or kV according to patient size, use of iterative reconstruction technique) copyright 2010 [employer]- All Rights Reserved Chest X-Ray 01/24/19 16:00 IMPRESSION: Stable 20% pneumothorax 2 hours post right chest tube removal. Assessment & Plan - Diagnosis (1) Pneumothorax, right Is this a current diagnosis for this admission?: Yes Plan: Stable pneumothorax on subsequent chest x-ray. Suspect the increased pneumothorax occurred during tube removal. I do not think she has an active pulmonary leak. We will repeat chest x-ray in the morning. Will keep patient on supplemental oxygen for nitrogen washout effect.
[2019-01-25] MEDS: HYDROCODONE/ACETAMINOPHEN 10-325 MG TABLET PO PRN ×4 (03:43→21:26)
[2019-01-25] MEDS: KETOROLAC TROMETHAMINE INJ/PF 30 MG/1 ML SDV IV SCH ×3 (06:18→21:25)
--- NOTE | 2019-01-25 08:35 | PDOC PROGRESS REPORT ---
Subjective Progress Note for:: 01/25/19 Subjective:: c/o rt sided chest pain Reason For Visit: S/P FALL,RIB FX,PULMONARY CONTUSION Physical Exam Vital Signs: Temp Pulse Resp BP Pulse Ox 98.2 F 60 16 101/55 L 100 01/24/19 23:33 01/24/19 23:33 01/24/19 23:33 01/24/19 23:33 01/24/19 23:33 Intake & Output 01/24/19 01/25/19 01/26/19 06:59 06:59 06:59 Intake Total 997 620 Output Total 770 Balance 227 620 Weight 58.9 kg General appearance: PRESENT: no acute distress Head exam: PRESENT: normocephalic Eye exam: PRESENT: EOMI Ear exam: PRESENT: normal external ear exam Mouth exam: PRESENT: moist Neck exam: PRESENT: full ROM Respiratory exam: PRESENT: clear to auscultation rick Cardiovascular exam: PRESENT: RRR Pulses: PRESENT: normal radial pulses, normal femoral pulses GI/Abdominal exam: PRESENT: soft Rectal exam: PRESENT: deferred Extremities exam: PRESENT: full ROM Musculoskeletal exam: PRESENT: full ROM Neurological exam: PRESENT: alert, awake, oriented to person, oriented to place Psychiatric exam: PRESENT: appropriate affect Skin exam: PRESENT: dry Results Laboratory Results: 01/22/19 05:30 01/22/19 05:30 Impressions: Ribs w/Chest X-Ray 01/22/19 03:29 IMPRESSION: Moderate right pneumothorax. Right eighth, ninth, and 10th rib fractures. Abdomen/Pelvis CT 01/22/19 05:19 IMPRESSION: Displaced right-sided rib fractures with two areas of pulmonary contusion/laceration involving the right lower lobe. Tiny residual pneumothorax with a right-sided chest tube in place. Extensive subcutaneous emphysema along the neck, chest, and back, right greater than left. Tiny right hemothorax. No evidence of acute traumatic injury to the abdomen or pelvis. TECHNICAL DOCUMENTATION: Quality ID # 436: Final reports with documentation of one or more dose reduction techniques (e.g., Automated exposure control, adjustment of the mA and/or kV according to patient size, use of iterative reconstruction technique) copyright 2011 [employer]- All Rights Reserved Chest CT 01/22/19 05:19 IMPRESSION: Displaced right-sided rib fractures with two areas of pulmonary contusion/laceration involving the right lower lobe. Tiny residual pneumothorax with a right-sided chest tube in place. Extensive subcutaneous emphysema along the neck, chest, and back, right greater than left. Tiny right hemothorax. No evidence of acute traumatic injury to the abdomen or pelvis. TECHNICAL DOCUMENTATION: Quality ID # [id number]: Final reports with documentation of one or more dose reduction techniques (e.g., Automated exposure control, adjustment of the mA and/or kV according to patient size, use of iterative reconstruction technique) copyright 2011 [employer]- All Rights Reserved Chest X-Ray 01/24/19 16:00 IMPRESSION: Stable 20% pneumothorax 2 hours post right chest tube removal. Assessment & Plan - Diagnosis (1) Pneumothorax, right Is this a current diagnosis for this admission?: Yes - Plan Summary Plan Summary: will check cxr today if ptx is less or resolved can be discharged home.
--- NOTE | 2019-01-25 09:03 | Progress Note ---
Provider Note Provider Note: repeat cxr still show ptx on right, min changes will repeat cxr at 6pm.
--- NOTE | 2019-01-25 09:18 | RADIOLOGY REPORT (SQ) ---
EXAM DESCRIPTION: CHEST SINGLE VIEW COMPLETED DATE/TIME: 01/25/2019 9:02 am REASON FOR STUDY: f/u ptx COMPARISON: 01/24/2019 EXAM PARAMETERS: NUMBER OF VIEWS: One view. TECHNIQUE: Single frontal radiographic view of the chest acquired. RADIATION DOSE: NA LIMITATIONS: None. FINDINGS: LUNGS AND PLEURA: Stable right-sided pneumothorax measuring approximately 2 cm from the demond ng apex and occupying approximately 20 % of the thoracic cavity. No evidence of tension. Unchanged patchy right basilar opacities, likely atelectasis or contusion. Unremarkable left hemithorax. MEDIASTINUM AND HILAR STRUCTURES: No masses. Contour normal. HEART AND VASCULAR STRUCTURES: Heart normal in size. Normal vasculature. BONES: Unchanged displaced right lower rib fractures. HARDWARE: None in the chest. OTHER: Subcutaneous gas along the right chest wall. IMPRESSION: Stable 20% right-sided pneumothorax. No evidence of tension. TECHNICAL DOCUMENTATION: JOB ID: [id number] [employer]- All Rights Reserved Reading location - IP/workstation name: [email or web address]
[2019-01-25] MEDS: MORPHINE SULFATE 10 MG/ML INJ IV PRN ×2 (10:13→19:55)
[2019-01-25] MEDS: DOCUSATE SODIUM 100 MG CAPSULE PO SCH ×2 (10:14→17:36)
[2019-01-25] MEDS: FAMOTIDINE 20 MG TABLET PO SCH ×2 (10:15→21:26)
[2019-01-25] MEDS: ENOXAPARIN SODIUM INJ 40 MG/0.4 ML DISP.SYRIN SUBCUT SCH (10:15)
--- NOTE | 2019-01-25 18:20 | RADIOLOGY REPORT (SQ) ---
EXAM DESCRIPTION: CHEST SINGLE VIEW COMPLETED DATE/TIME: 01/25/2019 6:08 pm REASON FOR STUDY: f/u ptx COMPARISON: Earlier exam same date TECHNIQUE: Single frontal radiographic view of the chest acquired. NUMBER OF VIEWS: One view. LIMITATIONS: None. FINDINGS: LUNGS AND PLEURA: Overall similar appearance of right pneumothorax and basilar airspace op acity. No left consolidation or pleural effusion. MEDIASTINUM AND HILAR STRUCTURES: Stable. HEART AND VASCULAR STRUCTURES: Stable. BONES: Multiple right rib fractures. HARDWARE: None in the chest. OTHER: No other significant finding. IMPRESSION: Overall similar appearance of right pneumothorax and basilar airspace opacity. TECHNICAL DOCUMENTATION: JOB ID: [id number] 2010 [employer]- All Rights Reserved Reading location - IP/workstation name: [email or web address]
[2019-01-26] MEDS: KETOROLAC TROMETHAMINE INJ/PF 30 MG/1 ML SDV IV SCH ×2 (05:39→14:40)
[2019-01-26] MEDS: HYDROCODONE/ACETAMINOPHEN 10-325 MG TABLET PO PRN (05:39)
--- NOTE | 2019-01-26 09:46 | RADIOLOGY REPORT (SQ) ---
EXAM DESCRIPTION: CHEST SINGLE VIEW COMPLETED DATE/TIME: 01/26/2019 9:27 am REASON FOR STUDY: f/u ptx COMPARISON: 01/25/2019 NUMBER OF VIEWS: One view. TECHNIQUE: Single frontal radiographic image of the chest acquired. LIMITATIONS: None. FINDINGS: LUNGS AND PLEURA: Persistent right apical pneumothorax no significant change in size. Per sistent right lower lobe airspace disease. Subcutaneous emphysema is unchanged. Left lung field rem ains clear. MEDIASTINUM AND HILAR STRUCTURES: Stable heart size and mediastinal structures. HEART AND VASCULAR STRUCTURES: Stable appearance. BONES: No acute findings. OTHER: No other significant finding. IMPRESSION: STABLE APPEARANCE OF THE CHEST. TECHNICAL DOCUMENTATION: JOB ID: [id number] [employer]- All Rights Reserved Reading location - IP/workstation name: [email or web address]
[2019-01-26] MEDS: MORPHINE SULFATE 10 MG/ML INJ IV PRN (09:47)
[2019-01-26] MEDS: ENOXAPARIN SODIUM INJ 40 MG/0.4 ML DISP.SYRIN SUBCUT SCH (09:50)
[2019-01-26] MEDS: FAMOTIDINE 20 MG TABLET PO SCH (09:51)
[2019-01-26] MEDS: DOCUSATE SODIUM 100 MG CAPSULE PO SCH (09:51)
--- NOTE | 2019-01-26 10:04 | PDOC PROGRESS REPORT ---
Subjective Progress Note for:: 01/26/19 Subjective:: Feels okay. Reason For Visit: S/P FALL,RIB FX,PULMONARY CONTUSION Physical Exam Vital Signs: Temp Pulse Resp BP Pulse Ox 97.7 F 61 18 102/57 L 99 01/26/19 08:58 01/26/19 08:58 01/26/19 08:58 01/26/19 08:58 01/26/19 08:58 Intake & Output 01/25/19 01/26/19 01/27/19 06:59 06:59 06:59 Intake Total 620 900 Balance 620 900 Weight 58.9 kg 59.5 kg General appearance: PRESENT: no acute distress, cooperative Respiratory exam: PRESENT: clear to auscultation rick, other - Prior chest tube site dressings reinforced. Some tenderness at the right chest appropriate for her rib fractures. Cardiovascular exam: PRESENT: RRR Results Laboratory Results: 01/22/19 05:30 01/22/19 05:30 Impressions: Ribs w/Chest X-Ray 01/22/19 03:29 IMPRESSION: Moderate right pneumothorax. Right eighth, ninth, and 10th rib fractures. Abdomen/Pelvis CT 01/22/19 05:19 IMPRESSION: Displaced right-sided rib fractures with two areas of pulmonary contusion/laceration involving the right lower lobe. Tiny residual pneumothorax with a right-sided chest tube in place. Extensive subcutaneous emphysema along the neck, chest, and back, right greater than left. Tiny right hemothorax. No evidence of acute traumatic injury to the abdomen or pelvis. TECHNICAL DOCUMENTATION: Quality ID # 436: Final reports with documentation of one or more dose reduction techniques (e.g., Automated exposure control, adjustment of the mA and/or kV according to patient size, use of iterative reconstruction technique) copyright 2010 [employer]- All Rights Reserved Chest CT 01/22/19 05:19 IMPRESSION: Displaced right-sided rib fractures with two areas of pulmonary contusion/laceration involving the right lower lobe. Tiny residual pneumothorax with a right-sided chest tube in place. Extensive subcutaneous emphysema along the neck, chest, and back, right greater than left. Tiny right hemothorax. No evidence of acute traumatic injury to the abdomen or pelvis. TECHNICAL DOCUMENTATION: Quality ID # 436: Final reports with documentation of one or more dose reduction techniques (e.g., Automated exposure control, adjustment of the mA and/or kV according to patient size, use of iterative reconstruction technique) copyright 2011 [employer]- All Rights Reserved Chest X-Ray 01/26/19 09:00 IMPRESSION: STABLE APPEARANCE OF THE CHEST. Assessment & Plan - Diagnosis (1) Pneumothorax, right Is this a current diagnosis for this admission?: Yes Plan: I have reviewed the chest x-rays and the pneumothorax has decreased from last night. Certainly not increased on serial x-rays. I believe she has had sufficient period of observation without the chest tube without evidence of worsening pneumothorax. Suspect that it will take several days for the pneumothorax to completely resolve. But I believe it is safe to discharge patient home with follow-up next week at [facility]. Patient feels comfortable going home.
--- NOTE | 2019-01-26 10:35 | DISCHARGE SUMMARY E ---
Discharge Summary NAME: ROMULO LUNA : 1980 AGE: 38Y ADMITTED: 01/22/2019 DISCHARGED: 01/26/2019 DISCHARGE DIAGNOSIS: Right-sided rib fractures with pulmonary contusion and pneumothorax. PROCEDURE PERFORMED DURING HOSPITALIZATION: Tube thoracostomy performed on 01/22/2019. HOSPITAL COURSE: The patient was admitted. She underwent right-sided chest tube placement in the emergency department. The patient was noted with displacement of the chest tube with the side ports outside of the thorax in the subcutaneous tissue. With dressings, the patient surprisingly did not have an air leak, but she did have a residual pneumothorax. With the dysfunctional chest tube, the chest tube was removed, and immediately after the chest tube removal she was noted to have an increased pneumothorax, which I suspected was due to air going in through the wound during the chest tube removal. The patient was observed with serial chest x-rays and exams, and the pneumothorax appeared to be decreasing. The patient had good pain control and was tolerating incentive spirometry well. The patient is now being discharged to home in good condition. She will follow up at [facility] next week with a chest x-ray in the morning of her follow-up visit. She was encouraged to stay active but avoid strenuous activity. She is to use her incentive spirometry at home. She may change her chest tube site dressing in two more days, with just dry gauze dressing. She is to call for any problems such as shortness of breath. DISCHARGE MEDICATIONS: 1. Percocet 1 p.o. every 4 hours p.r.n. pain. 2. Colace 100 mg 1 p.o. b.i.d. DISCHARGE DIET: She may resume her regular diet. DICTATING PHYSICIAN: GREG XIE M.D. [id number] PHY#: [id number] ID: [id number] JOB#: [id number] ACCT: [id number] cc:Randy THORNTON M.D. >
[2019-01-26] MEDS ORDERED: ONDANSETRON HCL INJ/PF 4 MG/2 ML SDV IV PRN (14:00)
[2019-01-26 14:39] VITALS: BP 99/57
== END 2019-01-26 15:10 | disposition home or self-care (01) | DRG 200 ==
LOC: ER 03:15 → OBSVTOIN 08:15 → INTOOBSV 08:15 → EH 08:15 → 4S 13:30
PROVIDERS: ADMIT Surgery; ATTEND Surgery
PROC: 0W9930Z Drainage of Right Pleural Cavity with Drainage Device, Percutaneous Approach (ICD-10-PCS; principal; 2019-01-22)
DX: S27.0XXA Traumatic pneumothorax, initial encounter (principal); S22.41XA Multiple fractures of ribs, right side, initial encounter for closed fracture; S27.321A Contusion of lung, unilateral, initial encounter; W01.190A Fall on same level from slipping, tripping and stumbling with subsequent striking against furniture, initial encounter; F17.210 Nicotine dependence, cigarettes, uncomplicated; Y93.89 Activity, other specified; Y92.098 Other place in other non-institutional residence as the place of occurrence of the external cause
CPT/HCPCS: 36415; 71045; 71260; 74177; 80053; 80307; 81001; 84703; 85025; 94799; 96361; 96374; 96375; 96376; 99285; 99152; J1650; J1885; J2270; J2405; J3490; J7030

== ENCOUNTER → 2019-02-01 | Outpatient (CLI) | payer MEDICAID ==
--- NOTE | 2019-02-01 18:56 | RADIOLOGY REPORT (SQ) ---
EXAM DESCRIPTION: CHEST 2 VIEWS COMPLETED DATE/TIME: 02/01/2019 5:59 pm REASON FOR STUDY: J93.9 PNEUMOTHORAX, UNSPECIFIED COMPARISON: 01/26/2019, 01/25/2019, 01/24/2019 EXAM PARAMETERS: NUMBER OF VIEWS: two views TECHNIQUE: Digital Frontal and Lateral radiographic views of the chest acquired. RADIATION DOSE: NA LIMITATIONS: none FINDINGS: LUNGS AND PLEURA: Small apical pneumothorax seen on the right 01/26/2019 is no longer prese nt. There is right basilar pleural thickening adjacent to fractures of the right lateral 8th 9th and 10th ribs. No acute infiltrates. MEDIASTINUM AND HILAR STRUCTURES: No masses or contour abnormalities. HEART AND VASCULAR STRUCTURES: Heart normal size. No evidence for failure. BONES: No acute findings. HARDWARE: None in the chest. OTHER: No other significant finding. IMPRESSION: Right basilar atelectasis and pleural thickening adjacent to right lower lateral rib fra ctures. No pneumothorax TECHNICAL DOCUMENTATION: JOB ID: [id number] [employer]- All Rights Reserved Reading location - IP/workstation name: [email or web address]
== END ==
LOC: RAD 11:27
PROVIDERS: ATTEND Surgery
DX: J93.9 Pneumothorax, unspecified (principal)
CPT/HCPCS: 71046

== ENCOUNTER 2019-02-19 19:41 | Emergency (ER) | payer MEDICAID ==
--- NOTE | 2019-02-19 21:06 | ER Document Report ---
ED Medical Screen (RME) - General Chief Complaint: Insect Bite Stated Complaint: LEG PAIN Time Seen by Provider: 02/19/19 20:49 Notes: Patient is a 38-year-old family presents to emergency department with a chief complaint of a wound to the right lower extremity. Patient states she was seen at urgent care on Wednesday and diagnosed with a infection. Patient states she was placed on clindamycin which she has started on Wednesday. Patient states she has a total of 6 doses of this. Patient states the redness has gotten worse. Patient reports that she has squeezed the wound with chest now turned into a black center. Patient states she is gotten pus out of this. Patient reports increasing pain. Patient denies fever. Patient states she was recently discharged from the hospital after having multiple rib fractures and a chest tube. Patient states the wound has been present since last Wednesday. Patient denies a history of diabetes. TRAVEL OUTSIDE OF THE [place] IN LAST 30 DAYS: No - Related Data Allergies/Adverse Reactions: No Known Allergies Allergy (Unverified 11/16/11 08:03) Past Medical History - Social History Frequency of alcohol use: Occasional Drug Abuse: None Renal/ Medical History: Denies: Hx Peritoneal Dialysis Past Surgical History: Reports: Hx Section - x 1 - Immunizations Immunizations up to date: Yes Hx Diphtheria, Pertussis, Tetanus Vaccination: Yes Physical Exam - Vital signs Vitals: Temp Pulse Resp BP Pulse Ox 98.1 F 86 14 108/60 98 02/19/19 20:04 02/19/19 20:04 02/19/19 20:04 02/19/19 20:04 02/19/19 20:04 - Extremities Notes: [id number] erythematous wound with a blackened center and clear drainage, surrounding cellulitis noted. Course - Re-evaluation Re-evalutation: 02/19/19 21:05 I have greeted and performed a rapid initial assessment of this patient. A comprehensive ED assessment and evaluation of the patient, analysis of test results and completion of the medical decision making process will be conducted by additional ED providers. - Vital Signs Vital signs: Temp Pulse Resp BP Pulse Ox 98.1 F 86 14 108/60 98 02/19/19 20:04 02/19/19 20:04 02/19/19 20:04 02/19/19 20:04 02/19/19 20:04
[2019-02-19 21:48] LABS: ABSOLUTE BASOPHILS # (AUTO) 0.1 10^3/uL (0.0-0.2); ABSOLUTE EOSINOPHILS # (AUTO) 0.6 10^3/uL (0.0-0.6); ABSOLUTE LYMPHOCYTES (AUTO) 2.7 10^3/uL (0.5-4.7); ABSOLUTE MONOCYTES (AUTO) 0.5 10^3/uL (0.1-1.4); ABSOLUTE NEUT (AUTO) 4.8 10^3/uL (1.7-8.2); BASOPHILS % (AUTO) 1.4 % (0-2); EOSINOPHILS % (AUTO) 6.3 % (0-6); HEMATOCRIT 25.2 % (36.0-47.0); MEAN CORPUSCULAR HEMOGLOBIN 19.7 pg (27.0-33.4); MEAN CORPUSCULAR HGB CONC 30.6 g/dL (32.0-36.0); MEAN CORPUSCULAR VOLUME 65 fl (80-97); MONOCYTES % (AUTO) 5.9 % (3-13); PLATELET COUNT 437 10^3/uL (150-450); RED BLOOD COUNT 3.89 10^6/uL (3.72-5.28); SEGMENTED NEUTROPHILS % (AUTO) 55.4 % (42-78); TOTAL CELLS COUNTED % (AUTO) 100 %; WHITE BLOOD COUNT 8.7 10^3/uL (4.0-10.5)
[2019-02-19 21:50] LABS: HEMOGLOBIN 7.7 g/dL (12.0-15.5)
--- NOTE | 2019-02-19 21:56 | RADIOLOGY REPORT (SQ) ---
EXAM DESCRIPTION: Right tibia fibula RadLex: XR TIBIA FIBULA 2 VIEWS Views: 2 CLINICAL HISTORY: 38 years Female, wound right lower extremity COMPARISON: None. FINDINGS: Negative for acute fracture, dislocation, or radiopaque foreign body. IMPRESSION: 1. No acute findings.
[2019-02-19 22:07] LABS: ANION GAP 10 (5-19); BLOOD UREA NITROGEN 15 mg/dL (7-20); CALCIUM 9.1 mg/dL (8.4-10.2); CARBON DIOXIDE 24 mmol/L (22-30); CHLORIDE 105 mmol/L (98-107); GLUCOSE 87 mg/dL (75-110); POTASSIUM 4.3 mmol/L (3.6-5.0)
[2019-02-19 22:12] LABS: ANISOCYTOSIS 1+; HYPOCHROMASIA 2+; OVALOCYTES 2+; POLYCHROMASIA SLIGHT; SCHISTOCYTES SLIGHT
[2019-02-19 22:13] LABS: PLATELET COMMENT ADEQUATE
--- NOTE | 2019-02-20 01:09 | ER Document Report ---
ED General - General Chief Complaint: Insect Bite Stated Complaint: LEG PAIN Time Seen by Provider: 02/19/19 20:49 Primary Care Provider: BHAVNA MURRELL NP [Primary Care Provider] - Follow up in 3-5 days Notes: Patient is a pleasant 38-year-old female presents with complaint of a wound on her right groves. She says that this started several days ago. She went to urgent care and they said it was infected and placed on clindamycin. She is been on clindamycin for 2 days. She says that they told her clindamycin to milk the back of her leg to try to squeeze any infection out. She says is been doing this. She initially she had some pus coming out but no longer is having purulent drainage. She says she now is having some spreading redness and therefore she was concerned and came to the ER. She has no other complaints at this time. Not diabetic. TRAVEL OUTSIDE OF THE [place] IN LAST 30 DAYS: No - Related Data Allergies/Adverse Reactions: No Known Allergies Allergy (Unverified 11/16/11 08:03) Past Medical History - Social History Smoking Status: Current Every Day Smoker Frequency of alcohol use: Occasional Drug Abuse: None Family History: Reviewed & Not Pertinent Patient has suicidal ideation: No Patient has homicidal ideation: No Renal/ Medical History: Denies: Hx Peritoneal Dialysis Past Surgical History: Reports: Hx Section - x 1 - Immunizations Immunizations up to date: Yes Hx Diphtheria, Pertussis, Tetanus Vaccination: Yes Review of Systems - Review of Systems Notes: My Normal Review Basic REVIEW OF SYSTEMS: CONSTITUTIONAL : Denies fever, chills, or sweats. Denies recent illness. MUSCULOSKELETAL: Pain over right lower leg. SKIN: Redness of her skin on right groves. HEMATOLOGIC : Denies easy bruising or bleeding. NEUROLOGICAL: Denies sensory or motor loss. ALL OTHER SYSTEMS REVIEWED AND NEGATIVE. Physical Exam - Vital signs Vitals: Temp Pulse Resp BP Pulse Ox 98.1 F 86 14 108/60 98 02/19/19 20:04 02/19/19 20:04 02/19/19 20:04 02/19/19 20:04 02/19/19 20:04 - Notes Notes: General Appearance: Well nourished, alert, cooperative, no acute distress, no obvious discomfort. Well-appearing Vitals: reviewed, See vital signs table. Extremities: Patient has a small area of cellulitis over the right groves. She has what used to be a small abscess which is since drained. Being that she is had previous drainage from it I did do a bedside ultrasound to make sure is no residual pocket of fluid and there is not. The area is flat there is no fluctuance to palpation. Surrounding erythema is approximately 4 cm. She does not have pain out of proportion to exam. Skin: warm, dry, appropriate color Neuro: speech clear, oriented x 3, normal affect, responds appropriately to questions. Course - Re-evaluation Re-evalutation: 02/20/19 06:28 No need for incision and drainage as the patient does not have recurrent abscess. I informed her to stop pushing and squeezing on the area as this will likely cause the redness to spread. I will switch her to doxycycline. I encouraged her to return to ER medially if she has fevers, spreading redness, recurrence of area of swelling or abscess, or if she has any further concerns. Patient agrees with plan will be discharged home. Dictation of this chart was performed using voice recognition software; therefore, there may be some unintended grammatical errors. - Vital Signs Vital signs: Temp Pulse Resp BP Pulse Ox 98 F 70 18 120/98 H 98 02/20/19 01:53 02/20/19 01:53 02/20/19 01:53 02/20/19 01:53 02/20/19 01:53 - Laboratory Result Diagrams: 02/19/19 21:37 02/19/19 21:37 Laboratory results interpreted by me: 02/19/19 21:37 Hgb 7.7 L Hct 25.2 L MCV 65 L MCH 19.7 L MCHC 30.6 L RDW 18.0 H Eosinophils % 6.3 H Discharge - Discharge Clinical Impression: Cellulitis Qualifiers: Site of cellulitis: extremity Site of cellulitis of extremity: lower extremity Laterality: right Qualified Code(s): L03.115 - Cellulitis of right lower limb Condition: Good Disposition: HOME, SELF-CARE Additional Instructions: Please stop taking the clindamycin and start taking the doxycycline. Doxycycline will make your skin more sensitive to the sun so please make sure you keep your skin covered or wear sunscreen whenever out in the sun. Please change the dressing on your leg every day. Wash it with soap and water. Please return to the ER if the redness is spreading, if you have fevers, or for further concerns. Prescriptions: RX: Doxycycline Hyclate 100 mg PO BID #14 capsule Referrals: BHANVA MURRELL NP [Primary Care Provider] - Follow up in 3-5 days
[2019-02-20] MEDS ORDERED: DOXYCYCLINE HYCLATE 100 MG TABLET PO ONE (01:12)
[2019-02-20 01:54] VITALS: BP 120/98
== END 2019-02-20 01:53 | disposition home or self-care (01) ==
LOC: ER 19:41
DX: L03.115 Cellulitis of right lower limb (principal); M79.661 Pain in right lower leg; F17.200 Nicotine dependence, unspecified, uncomplicated
CPT/HCPCS: 99283; 36415; 87070; 87205; 85025; 80048; 73590; J3490; 87077

== ENCOUNTER 2019-10-13 11:48 | Outpatient (CLI) | payer MEDICAID | END 2019-10-13 13:27 | disposition home or self-care (01) | LOC: LC 11:48 | PROVIDERS: ATTEND Obstetrics & Gynecology | PROC: 4A1HXCZ Monitoring of Products of Conception, Cardiac Rate, External Approach (ICD-10-PCS; principal; 2019-10-13) | DX: O09.523 Supervision of elderly multigravida, third trimester (principal); Z3A.35 35 weeks gestation of pregnancy | CPT/HCPCS: 59025 ==

== ENCOUNTER 2019-11-07 06:27 | Inpatient (IN) | payer MEDICAID ==
[2019-11-07 06:58] LABS: APPEARANCE,URINE CLOUDY; BILIRUBIN,URINE NEGATIVE (NEGATIVE); COLOR,URINE YELLOW; GLUCOSE, URINE NEGATIVE (NEGATIVE); KETONES,URINE NEGATIVE (NEGATIVE); LEUKOCYTE ESTERASE,URINE MODERATE (NEGATIVE); NITRITE,URINE NEGATIVE (NEGATIVE); PROTEIN,URINE NEGATIVE (NEGATIVE); URINE SPECIFIC GRAVITY 1.025; UROBILINOGEN,URINE NEGATIVE mg/dL (<2.0)
[2019-11-07 07:13] LABS: URINE AMPHETAMINES SCREEN NEGATIVE; URINE BARBITURATES SCREEN NEGATIVE; URINE BENZODIAZEPINES SCREEN NEGATIVE; URINE COCAINE SCREEN NEGATIVE; URINE MARIJUANA (THC) SCREEN NEGATIVE; URINE METHADONE SCREEN NEGATIVE; URINE PHENCYCLIDINE SCREEN NEGATIVE
--- NOTE | 2019-11-07 07:23 | Admission Physical ---
Datetime Report Generated by CPN: 11/07/2019 07:22 CURRENT ADMISSION Chief Complaint: Uterine Contractions; Other Chief Complaint Other: repeat c/section scheduled for Indication for Induction: Not Applicable Admit Impression : Term, Intrauterine ; Active Labor Admit Plan: Admit to Unit; Initiate Section Protocol ALLERGIES Medication Allergies: No Medication Allergies: No Known Allergies (10/13/2019) Latex: No Latex Allergies OBSTETRICAL HISTORY EDC: 11/16/2019 00:00 : 3 Para: 1 Term: 1 : 0 SAB: 0 IAB: 1 Ectopic: 0 Livin Cesareans: 1 VBACs: 0 Multiple Births: 0 PHYSICAL EXAM General: Normal HEENT: Normal Neurologic: Normal Thyroid: Normal Heart: Normal Lungs: Normal Breast: Normal Back: Normal Abdomen: Normal Genitourinary Exam: Normal Extremities: Normal DTRs: Normal Pelvic Type: Adequate Vital Signs: Reviewed; Within Normal Limits VAGINAL EXAM Dilatation: 5 Effacement: 80 Station: 1 MEMBRANES Pooling: Negative Membranes: Intact FETUS A EGA: 38.5 Monitoring: External US FHR- Baseline: 130 Variability: Moderate 6-25bpm Accelerations: 15X15 Decelerations: None FHR Category: Category I Estimated Weight (gm): 3700 Presentation: Vertex Admit Comment: declines BTL INFORMED CONSENT Signature: with User ID: Angela
[2019-11-07] MEDS ORDERED: CEFAZOLIN SODIUM 1 GM in DEXTROSE 5%-WATER 50 ML IV PRN (07:37)
[2019-11-07] MEDS ORDERED: RINGERS SOLUTION,LACTATED 1,000 ML IV ONE (07:40)
[2019-11-07] MEDS ORDERED: CEFAZOLIN 1 GM/D5W RTU 0 GM/0 ML RTUPB IV ONE (07:52)
[2019-11-07] MEDS ORDERED: CITRIC ACID/SODIUM CITRATE ORAL SOLN 15 ML UDCUP ONE (07:52)
[2019-11-07] MEDS ORDERED: PENICILLIN G-K 5 MILLION UNIT VIAL ONE (07:56)
[2019-11-07] MEDS ORDERED: PENICILLIN G POTASSIUM 5,000,000 UNIT in DEXTROSE 5%-WATER 100 ML IV ONE (08:01)
[2019-11-07] MEDS ORDERED: HYDROMORPHONE HCL INJ/PF 2 MG/ML AMPULE ONE (08:03)
[2019-11-07 08:08] LABS: ABSOLUTE BASOPHILS # (AUTO) 0.1 10^3/uL (0.0-0.2); ABSOLUTE EOSINOPHILS # (AUTO) 0.1 10^3/uL (0.0-0.6); ABSOLUTE LYMPHOCYTES (AUTO) 1.8 10^3/uL (0.5-4.7); ABSOLUTE MONOCYTES (AUTO) 0.6 10^3/uL (0.1-1.4); BASOPHILS % (AUTO) 0.8 % (0-2); HEMATOCRIT 31.9 % (36.0-47.0); HEMOGLOBIN 11.2 g/dL (12.0-15.5); LYMPHOCYTES % (AUTO) 16.7 % (13-45); MEAN CORPUSCULAR HGB CONC 35.2 g/dL (32.0-36.0); MEAN CORPUSCULAR VOLUME 82 fl (80-97); PLATELET COUNT 300 10^3/uL (150-450); RED BLOOD COUNT 3.86 10^6/uL (3.72-5.28); RED CELL DISTRIBUTION WIDTH 15.9 % (11.5-14.0); SEGMENTED NEUTROPHILS % (AUTO) 75.5 % (42-78); TOTAL CELLS COUNTED % (AUTO) 100 %; WHITE BLOOD COUNT 10.6 10^3/uL (4.0-10.5)
[2019-11-07] MEDS ORDERED: ONDANSETRON HCL INJ/PF 4 MG/2 ML SDV ONE (08:10)
[2019-11-07] MEDS ORDERED: FENTANYL/BUPIVACAINE/NS/PF 300 MCG/150 ML RTUINJ EPI ONE (08:19)
[2019-11-07] MEDS ORDERED: BUPIVACAINE HCL 0.25 % INJ/PF (2.5 MG/1 ML) 30 ML VIAL ONE (08:19)
[2019-11-07] MEDS ORDERED: EPHEDRINE SULFATE INJ 50 MG/1 ML AMPULE ONE (08:19)
[2019-11-07] MEDS ORDERED: NORMAL SALINE 250 ML IV PRN (08:26)
[2019-11-07] MEDS: RINGERS SOLUTION,LACTATED 1,000 ML IV PRN ×2 (08:30→09:35)
[2019-11-07] MEDS ORDERED: LIDOCAINE 1% INJ-PF (10 MG/ML) 30 ML SDV ONE (10:15)
[2019-11-07] MEDS ORDERED: OXYTOCIN/NORMAL SALINE 20 UNIT/1,000 ML RTUINJ ONE (10:15)
[2019-11-07] MEDS ORDERED: OXYTOCIN 10 UNIT/ML VIAL ONE (10:15)
[2019-11-07] MEDS ORDERED: MISOPROSTOL 0.2 MG TABLET ONE (10:15)
[2019-11-07] MEDS: PENICILLIN G POTASSIUM 2,500,000 UNIT in DEXTROSE 5%-WATER 50 ML IV SCH ×2 (12:06→18:27)
--- NOTE | 2019-11-07 12:16 | PDOC PROGRESS REPORT ---
Subjective Progress Note for:: 11/07/19 Subjective:: Patient undergoing now S/p 4hours antibiotics for known GBS positive coloniization. Cervix now AL/C/+1 AROM'd and is clear large amount Anticipate Good pain control with epidural Reason For Visit: Physical Exam - Physical Exam Vital Signs: Intake & Output 11/06/19 11/07/19 11/08/19 06:59 06:59 06:59 Intake Total 1000 Balance 1000 Weight 71.7 kg - Obstetrical Exam Vagina: normal Dilation (cm): 9 Effacement (%): 100 Station: +1 Result Laboratory Results: 11/07/19 07:54 11/07/19 11/07/19 11/07/19 06:33 07:54 07:54 WBC 10.6 H RBC 3.86 Hgb 11.2 L Hct 31.9 L MCV 82 MCH 29.0 MCHC 35.2 RDW 15.9 H Plt Count 300 Seg Neutrophils % 75.5 Urine Color YELLOW Urine Appearance CLOUDY Urine pH 5.0 Ur Specific Wink 1.025 Urine Protein NEGATIVE Urine Glucose (UA) NEGATIVE Urine Ketones NEGATIVE Urine Blood MODERATE H Urine Nitrite NEGATIVE Ur Leukocyte Esterase MODERATE H Blood Type A POSITIVE Antibody Screen NEGATIVE Assessment & Plan - Diagnosis (1) History of delivery Is this a current diagnosis for this admission?: Yes (2) Term Is this a current diagnosis for this admission?: Yes (3) Active labor Is this a current diagnosis for this admission?: Yes - Time Time Spent with patient: 15-24 minutes - Plan Summary Plan Summary: Patient undergoing now S/p 4hours antibiotics for known GBS positive coloniization. Cervix now AL/C/+1 AROM'd and is clear large amount Anticipate Good pain control with epidural
[2019-11-07] MEDS ORDERED: MAGNESIUM HYDROXIDE SUSP 30 ML UDCUP PO PRN (15:35)
[2019-11-07] MEDS ORDERED: BENZOCAINE/MENTHOL AEROSOL SPRAY 56 ML TOP PRN (15:35)
[2019-11-07] MEDS ORDERED: PROMETHAZINE HCL INJ 25 MG/1 ML VIAL IV PRN (15:35)
[2019-11-07] MEDS ORDERED: DIBUCAINE 1% OINTMENT 28 GM TP PRN (15:35)
[2019-11-07] MEDS ORDERED: PSEUDOEPHEDRINE HCL 30 MG TABLET PO PRN (15:35)
[2019-11-07] MEDS ORDERED: DIPHENHYDRAMINE HCL 25 MG CAPSULE PO PRN (15:35)
[2019-11-07] MEDS ORDERED: ACETAMINOPHEN WITH CODEINE #3 TABLET PO PRN (15:35)
[2019-11-07] MEDS ORDERED: OXYTOCIN/NORMAL SALINE 20 UNIT/1,000 ML RTUINJ IV PRN (15:35)
[2019-11-07] MEDS ORDERED: DIPH/PERTUSS(ACELL)/TETANUS VAC/PF 0.5 ML SYR (>=10YO) IM PRN (15:35)
[2019-11-07] MEDS ORDERED: ZOLPIDEM TARTRATE 5 MG TABLET PO PRN (15:35)
[2019-11-07] MEDS ORDERED: ACETAMINOPHEN 650 MG SUPP.RECT PR PRN (15:35)
[2019-11-07] MEDS ORDERED: NA PHOS,M-B/NA PHOS,DI-BA (ADULT) 133 ML ENEMA PR PRN (15:35)
[2019-11-07] MEDS ORDERED: MEASLES,MUMPS&RUBELLA VACC/PF 0.5 ML VIAL SUBCUT PRN (15:35)
[2019-11-07] MEDS ORDERED: PROMETHAZINE HCL 25 MG TABLET PO PRN (15:35)
[2019-11-07] MEDS ORDERED: GLYCERIN/WITCH HAZEL LEAF 1 EACH MED..WIPE TP PRN (15:35)
[2019-11-07] MEDS ORDERED: PROMETHAZINE HCL 25 MG SUPP.RECT PR PRN (15:35)
[2019-11-07] MEDS ORDERED: MISOPROSTOL 0.2 MG TABLET PR ONE (16:20)
--- NOTE | 2019-11-07 16:53 | Warning Signs in Babies ---
VOD Warning Signs Datetime Report Generated by [facility]: 11/07/2019 16:53 VOD#608 -Warning Signs in Babies: Needs to be viewed. (10/13/2019 11:54:Patti Berg RN)
--- NOTE | 2019-11-07 16:53 | Delivery Summary ---
Del Sum A-C Datetime Report Generated by CPN: 11/07/2019 16:53 DELIVERY PERSONNEL DELIVERY PERSONNEL: [id number] Nurse Steam Hand Certified:: Jory Singleton CNM (Annotations: Data stored by CPN on behalf of user) Labor and Delivery Nurse:: aPtti Berg RNpolishing pad mounter Nurse:: ISSAC Deng (Annotations: Data stored by CPN on behalf of user) Nursery Nurse:: Larisa So RN Summer Law Associate/TIESHA: [facility] Jason (Annotations: Data stored by CPN on behalf of user) MATERNAL INFORMATION Delivery Anesthesia: Epidural Medications After Delivery: Pitocin Drip 20 Units/1000ml NSS Meds After Delivery Comment: 20 units in 1000mLs NS open bolus Estimated Blood Loss (ml): 50 Maternal Complications: None Provider Comments: AISHWARYA VIABLE FEMALE WITHOUT SPONTANEOUS CRY. CORD DOUBLE CLAMPED AND CUT; BABY TRANSFERRED TO WARMER. CHARGE NURSE-KAILYN PRESENT AND NURSERY NURSES PRESENT FOR BABY CARE. SPONTANEOUS PLACENTA INTACT WITH 3VC. NO LACERATIONS. MOTHER AND STABLE IN L_D #4. LABOR SUMMARY EDC: 11/16/2019 00:00 No. Babies in Womb: 1 Attempted: Yes Labor Anesthesia: Epidural LABOR INFORMATION Reason for Induction: Not Applicable Onset of Labor: 11/07/2019 07:13 Complete Dilatation: 11/07/2019 13:19 Oxytocin: N/A Group B Beta Strep: pos Antibiotics # of Doses: 2 Antibiotics Time of Last Dose: 1206 Name of Antibiotic Given: Penicillin Steroids Given: None Reason Steroids Not Administered: Not Applicable MEMBRANES Membranes Rupture Method: Artificial Rupture of Membranes: 11/07/2019 12:07 Length of Rupture (hr): 3.05 Amniotic Fluid Color: Clear Amniotic Fluid Amount: Large Amniotic Fluid Odor: Normal STAGES OF LABOR Stage 1 hr: 6 Stage 1 min: 6 Stage 2 hr: 1 Stage 2 min: 51 Stage 3 hr: 0 Stage 3 min: 3 Total Time in Labor hr: 8 Total Time in Labor min: 0 VAGINAL DELIVERY Episiotomy: None Laceration #1: None Laceration Extension #1: N/A Laceration Repair: Not Applicable Sponge Count Correct: N/A Sharps Count Correct: N/A CSECTION DELIVERY Primary Indication: N/A Secondary Indication: N/A CSection Incidence: N/A Labor: N/A Elective: N/A CSection Incision: N/A BABY A INFORMATION Delivery Date/Time: 11/07/2019 15:10 Method of Delivery: Vaginal Nurse Controlled Delivery: No Born in Route : No : Successful Forceps: N/A Vacuum Extraction: N/A Shoulder Dystocia : No PRESENTATION/POSITION BABY A Presentation: Cephalic Cephalic Presentation: Vertex Vertex Position: Left Occipital Anterior Breech Presentation: N/A PLACENTA INFORMATION BABY A Placenta Delivery Time : 11/07/2019 15:13 Placenta Method of Delivery: Spontaneous Placenta Status: Delivered SCORES BABY A Heart Rate 1 min: >100 bpm Resp Effort 1 min: Slow, Irregular Reflex Irritability 1 min: Cough or Sneeze or Pulls Away Muscle Tone 1 min: Active Motion Color 1 min: Blue/Pale Resuscitation Effort 1 min: Tactile Stimulation; PPV/NCPAP SCORE 1 MIN: 7 Heart Rate 5 min: >100 bpm Resp Effort 5 min: Slow, Irregular Reflex Irritability 5 min: Cough or Sneeze or Pulls Away Muscle Tone 5 min: Active Motion Color 5 min: Body [place], Extremities Blue Resuscitation Effort 5 min: Tactile Stimulation; Oxygen SCORE 5 MIN: 8 INFORMATION BABY A Gestational Age at Delivery: 38.5 Gestational Status: Early Term- 37- 38.6 Weeks Infant Outcome : Liveborn Condition : Stable Sex: Female IDENTIFICATION BABY A Infant Verification Date/Time: 11/07/2019 15:58 ID Band Number: [id number] Mother's Name Verified: Yes RN Verifying Infant: Jewel BergKODI Additional Verifying Personnel: SElizabeth Garrison RN WEIGHT/LENGTH BABY A Birthweight (gm): 3075 Weight (lb): 6 Weight (oz): 12 Infant Length (in): 19.75 Length (cm): 50.17 CORD INFORMATION BABY A No. Cord Vessels: 3 Nuchal Cord : N/A Cord Blood Taken: Yes-For Storage (Mom's Blood type +) Infant Suction: None; Mouth ASSESSMENT BABY A Skin to Skin: Yes Skin to Skin Time (min): 2 Infant Care By: C Saray Transferred To: [facility] BABY B INFORMATION : N/A SIGNATURES Assignment: Tessa Foreman MD Signature: with User ID: [email or web address] : with User ID: [email or web address] : I was personally available for consultation and serving as supervising physician for the MLP.
[2019-11-07] MEDS ORDERED: METHYLERGONOVINE MALEATE INJ/PF 0.2 MG/1 ML AMPULE ONE (17:35)
[2019-11-07] MEDS ORDERED: METHYLERGONOVINE MALEATE INJ/PF 0.2 MG/1 ML AMPULE IV ONE (17:37)
[2019-11-07] MEDS: DOCUSATE SODIUM 100 MG CAPSULE PO SCH (18:41)
[2019-11-07] MEDS: FERROUS SULFATE 325 MG TABLET PO SCH (18:41)
[2019-11-07] MEDS: FAMOTIDINE 20 MG TABLET PO SCH (22:11)
[2019-11-07] MEDS: IBUPROFEN 800 MG TABLET PO SCH (22:11)
[2019-11-08] MEDS: IBUPROFEN 800 MG TABLET PO SCH ×3 (06:17→21:44)
[2019-11-08 06:38] LABS: HEMATOCRIT 28.1 % (36.0-47.0); HEMOGLOBIN 9.6 g/dL (12.0-15.5); MEAN CORPUSCULAR HEMOGLOBIN 28.4 pg (27.0-33.4); MEAN CORPUSCULAR VOLUME 84 fl (80-97); PLATELET COUNT 242 10^3/uL (150-450); RED BLOOD COUNT 3.36 10^6/uL (3.72-5.28); RED CELL DISTRIBUTION WIDTH 15.6 % (11.5-14.0); WHITE BLOOD COUNT 11.4 10^3/uL (4.0-10.5)
[2019-11-08] MEDS: DOCUSATE SODIUM 100 MG CAPSULE PO SCH ×2 (09:29→17:54)
[2019-11-08] MEDS: PRENATAL VITAMIN W DHA CAPSULE PO SCH (09:29)
[2019-11-08] MEDS: FERROUS SULFATE 325 MG TABLET PO SCH ×2 (09:30→17:54)
[2019-11-08] MEDS: SENNOSIDES/DOCUSATE 8.6-50 MG 1 EACH TABLET PO SCH (09:30)
[2019-11-08] MEDS: FAMOTIDINE 20 MG TABLET PO SCH ×2 (09:30→22:00)
--- NOTE | 2019-11-08 11:22 | PDOC PROGRESS REPORT ---
Subjective-OB Progress Note for:: 11/08/19 Subjective: 39yo G3 now P2 s/p ppd 1. Pt is ambulating, voiding and without difficulty. reports pain well controlled with medication, no other concerns at this time. Physical Exam (OB) Vital Signs: Temp Pulse Resp BP Pulse Ox 97.9 F 59 L 16 121/71 99 11/08/19 07:31 11/08/19 07:31 11/08/19 07:31 11/08/19 07:31 11/08/19 07:31 Intake & Output 11/07/19 11/08/19 11/09/19 06:59 06:59 06:59 Intake Total 1000 Output Total 1390 Balance -390 Weight 71.7 kg - General General Appearance: Appears well In distress: None - PIH/Pre-Eclampsia Clonus: Negative Headache: Absent Epigastric Pain: No Visual Changes: No - Episiotomy/Laceration Site Condition: N/A - Lochia Lochia Amount: Moderate 25-50 ml Lochia Color: Rubra/Red - Abdomen Description: Tender, Soft Hernia Present: No Fundal Description: Firm, Non-Midline Describe if Not Midline: deviated to right, MD notified Fundal Height: u/u - u/2 - Respiratory Respiratory Status: No respiratory distress - Extremities Upper extremity: Normal inspection Lower extremities: Normal inspection - Neurological Cognition: Normal Orientation: AAOx4 - Psychological Associated symptoms: Normal affect, Normal mood Objective-Diagnostic Laboratory: 11/08/19 06:29 11/08/19 06:29 WBC 11.4 H RBC 3.36 L Hgb 9.6 L Hct 28.1 L MCV 84 MCH 28.4 MCHC 34.0 RDW 15.6 H Plt Count 242 Assessment and Plan(PN) - Assessment and Plan (1) Acute blood loss anemia Is this a current diagnosis for this admission?: Yes Plan: increase dietary iron and feso4 bid (2) Vaginal after , delivered, current hospitalization Is this a current diagnosis for this admission?: Yes Plan: routine pp care (3) History of delivery Is this a current diagnosis for this admission?: Yes Plan: delivered (4) Term Is this a current diagnosis for this admission?: Yes Plan: delivered (5) Active labor Is this a current diagnosis for this admission?: Yes Plan: delivered - Time Spent with Patient Time with patient: Less than 15 minutes Medications reviewed and adjusted accordingly: Yes - Disposition Anticipated Discharge: Home Within: within 24 hours
[2019-11-08] MEDS: ACETAMINOPHEN WITH CODEINE #3 TABLET PO PRN ×2 (13:14→19:33)
[2019-11-09] MEDS: IBUPROFEN 800 MG TABLET PO SCH ×3 (06:00→13:59)
[2019-11-09 07:47] VITALS: BP 118/77
[2019-11-09] MEDS: SENNOSIDES/DOCUSATE 8.6-50 MG 1 EACH TABLET PO SCH (09:34)
[2019-11-09] MEDS: DOCUSATE SODIUM 100 MG CAPSULE PO SCH (09:35)
[2019-11-09] MEDS: FAMOTIDINE 20 MG TABLET PO SCH (09:36)
[2019-11-09] MEDS: PRENATAL VITAMIN W DHA CAPSULE PO SCH (09:37)
[2019-11-09] MEDS: FERROUS SULFATE 325 MG TABLET PO SCH (10:58)
--- NOTE | 2019-11-09 12:23 | PDOC DISCHARGE SUMMARY ---
Impression - Admit/DC Date/PCP Admission Date/Primary Care Provider: 11/07/19 07:17 BHAVNA MURRELL NP Discharge Date: 11/09/19 - Discharge Diagnosis (1) Acute blood loss anemia Is this a current diagnosis for this admission?: Yes (2) Vaginal after , delivered, current hospitalization Is this a current diagnosis for this admission?: Yes (3) History of delivery Is this a current diagnosis for this admission?: Yes (4) Term Is this a current diagnosis for this admission?: Yes (5) Active labor Is this a current diagnosis for this admission?: Yes - Assessment Summary: ppd 2 stable and ready for discharge. Reviewed warning s/s and verbalized understanding. - Additional Information Resuscitation Status: Full Code Discharge Diet: As Tolerated, Regular Discharge Activity: Activity As Tolerated, Balance Activity w/Rest, No Lifting Over 10 Pounds, Pelvic Rest, No tub bath, Walk Frequently Referrals: BHAVNA MURRELL NP [Primary Care Provider] - Prescriptions: Ibuprofen [Motrin 800 mg Tablet] 800 mg PO Q8HP PRN #20 tablet PRN Reason: Abdominal Cramping Docusate Sodium [Colace 100 mg Capsule] 100 mg PO BID #60 capsule Ferrous Sulfate [Feosol 325 mg Tablet] 325 mg PO BID #60 tablet Home Medications: Prenat 115/Iron Fum/Folic/Dss [ 19 Tablet] 1 each PO DAILY 11/06/19 Docusate Sodium [Colace 100 mg Capsule] 100 mg PO BID #60 capsule 11/08/19 Ferrous Sulfate [Feosol 325 mg Tablet] 325 mg PO BID #60 tablet 11/08/19 Ibuprofen [Motrin 800 mg Tablet] 800 mg PO Q8HP PRN #20 tablet 11/08/19 Results Laboratory Results: WBC 11.4 10^3/uL (4.0-10.5) H 11/08/19 06:29 RBC 3.36 10^6/uL (3.72-5.28) L 11/08/19 06:29 Hgb 9.6 g/dL (12.0-15.5) L 11/08/19 06:29 Hct 28.1 % (36.0-47.0) L 11/08/19 06:29 MCV 84 fl (80-97) 11/08/19 06:29 MCH 28.4 pg (27.0-33.4) 11/08/19 06:29 MCHC 34.0 g/dL (32.0-36.0) 11/08/19 06:29 RDW 15.6 % (11.5-14.0) H 11/08/19 06:29 Plt Count 242 10^3/uL (150-450) 11/08/19 06:29 Lymph % (Auto) 16.7 % (13-45) 11/07/19 07:54 [place] % (Auto) 6.0 % (3-13) 11/07/19 07:54 Eos % (Auto) 1.0 % (0-6) 11/07/19 07:54 Baso % (Auto) 0.8 % (0-2) 11/07/19 07:54 Absolute Neuts (auto) 8.0 10^3/uL (1.7-8.2) 11/07/19 07:54 Absolute Lymphs (auto) 1.8 10^3/uL (0.5-4.7) 11/07/19 07:54 Absolute Monos (auto) 0.6 10^3/uL (0.1-1.4) 11/07/19 07:54 Absolute Eos (auto) 0.1 10^3/uL (0.0-0.6) 11/07/19 07:54 Absolute Basos (auto) 0.1 10^3/uL (0.0-0.2) 11/07/19 07:54 Seg Neutrophils % 75.5 % (42-78) 11/07/19 07:54 Urine Color YELLOW 11/07/19 06:33 Urine Appearance CLOUDY 11/07/19 06:33 Urine pH 5.0 (5.0-9.0) 11/07/19 06:33 Ur Specific [place] 1.025 11/07/19 06:33 Urine Protein NEGATIVE mg/dL (NEGATIVE) 11/07/19 06:33 Urine Glucose (UA) NEGATIVE mg/dL (NEGATIVE) 11/07/19 06:33 Urine Ketones NEGATIVE mg/dL (NEGATIVE) 11/07/19 06:33 Urine Blood MODERATE (NEGATIVE) H 11/07/19 06:33 Urine Nitrite NEGATIVE (NEGATIVE) 11/07/19 06:33 Urine Bilirubin NEGATIVE (NEGATIVE) 11/07/19 06:33 Urine Urobilinogen NEGATIVE mg/dL (<2.0) 11/07/19 06:33 Ur Leukocyte Esterase MODERATE (NEGATIVE) H 11/07/19 06:33 Urine Ascorbic Acid NEGATIVE (NEGATIVE) 11/07/19 06:33 Urine Opiates Screen NEGATIVE 11/07/19 06:33 Urine Methadone Screen NEGATIVE 11/07/19 06:33 Ur Barbiturates Screen NEGATIVE 11/07/19 06:33 Ur Phencyclidine Scrn NEGATIVE 11/07/19 06:33 Ur Amphetamines Screen NEGATIVE 11/07/19 06:33 U Benzodiazepines Scrn NEGATIVE 11/07/19 06:33 Urine Cocaine Screen NEGATIVE 11/07/19 06:33 U Marijuana (THC) Screen NEGATIVE 11/07/19 06:33 RPR NONREACTIVE (NONREACTIVE) 11/07/19 07:54 Blood Type A POSITIVE 11/07/19 07:54 Antibody Screen NEGATIVE 11/07/19 07:54 Crossmatch See Detail 11/07/19 07:54
== END 2019-11-09 17:34 | disposition home or self-care (01) | DRG 806 ==
LOC: LC 06:27 → LR 07:17 → 2S 18:19
PROVIDERS: ADMIT Obstetrics & Gynecology; ATTEND Obstetrics & Gynecology Gynecology
PROC: 10E0XZZ Delivery of Products of Conception, External Approach (ICD-10-PCS; principal; 2019-11-07)
PROC: 10907ZC Drainage of Amniotic Fluid, Therapeutic from Products of Conception, Via Natural or Artificial Opening (ICD-10-PCS; 2019-11-07)
DX: O34.219 Maternal care for unspecified type scar from previous cesarean delivery (principal); D62 Acute posthemorrhagic anemia; Z37.0 Single live birth; O99.824 Streptococcus B carrier state complicating childbirth; Z3A.38 38 weeks gestation of pregnancy; O99.02 Anemia complicating childbirth
CPT/HCPCS: 36415; 80307; 81005; 85025; 85027; 86592; 86695; 86696; 86850; 86900; 86901; 86920; 94760; 99465; J0690; J1170; J2210; J2405; J2540; J2590; J3010; J3490; J7060